=== PATIENT | female | born 1975 | race Caucasian/White ===

== ENCOUNTER → 2023-11-02 | Outpatient (CLI) | payer OTHER ==
--- NOTE | 2023-11-02 12:17 | US ---
EXAMINATION TYPE: US kidneys/renal and bladder DATE OF EXAM: 11/02/2023 COMPARISON: NONE CLINICAL INDICATION: Female, 47 years old with history of N20.0 CALCULUS OF KIDNEY R10.30 LOWER ABD P AIN; History of kidney stones. Back pain, worse on the left EXAM MEASUREMENTS: Right Kidney: 10.5 x 4.7 x 4.9 cm Left Kidney: 10.0 x 5.6 x 4.5 cm Right Kidney: stones visualized, largest = 0.8cm. minimally dilated collecting system Left Kidney: anechoic area lower pole = 1.8 x 1.2 x 1.1cm. stones visualized, largest = 1.0cm Bladder: wnl Bilateral Jets seen: yes No masses are identified. The urinary bladder is anechoic. Bilateral ureteral jets are seen. IMPRESSION: Nephrolithiasis with mild right-sided hydronephrosis.
--- NOTE | 2023-11-02 17:49 | CA ---
Transthoracic Echo Report Name: Dorothea Douglas Age: 47 Gender: F : 1975 Exam Date: 11/02/2023 12:01 Exam Location: [facility] Ht (in): 64 Wt (lb): 139 Ordering Physician: Poonam Jenkins MD Attending/Referring Phys: Poonam Jenkins MD Property Staff Accountant Wendi Corrales, [facility] Procedure CPT: Indications: R00.2 palpitations Cardiac Hx: Technical Quality: Good Contrast 1: Total Dose (mL): Contrast 2: Total Dose (mL): MEASUREMENTS (Male / Female) Normal Values 2D ECHO LV Diastolic Diameter PLAX 5.2 cm 4.2 - 5.9 / 3.9 - 5.3 cm LV Systolic Diameter PLAX 3.9 cm IVS Diastolic Thickness 0.7 cm 0.6 - 1.0 / 0.6 - 0.9 cm LVPW Diastolic Thickness 0.7 cm 0.6 - 1.0 / 0.6 - 0.9 cm LV Relative Wall Thickness 0.3 RV Internal Dim ED PLAX 2.8 cm LV Diastolic Volume MOD 4C 73.8 cm??? LV Systolic Volume MOD 4C 32.9 cm??? LV Ejection Fraction MOD 4C 55.3 % LV Cardiac Index MOD 4C 1757.5 cm???/min???m??? LV Diastolic Length 4C 7.6 cm LV Systolic Length 4C 6.1 cm LV Diastolic Volume MOD 2C 75.6 cm??? LV Systolic Volume MOD 2C 27.4 cm??? LV Ejection Fraction MOD 2C 63.8 % LV Cardiac Index MOD 2C 2078.5 cm???/min???m??? LV Diastolic Length 2C 7.1 cm LV Systolic Length 2C 5.7 cm LA Volume 45.7 cm??? 18 - 58 / 22 - 52 cm??? LA Volume Index 27.0 cm???/m??? 16 - 28 cm???/m??? M-MODE Aortic Root Diameter MM 3.1 cm DOPPLER AV Peak Velocity 138.7 cm/s AV Peak Gradient 7.7 mmHg Mitral E Point Velocity 101.7 cm/s Mitral A Point Velocity 88.8 cm/s Mitral E to A Ratio 1.1 MV Deceleration Time 178.8 ms MV E' Velocity 9.7 cm/s Mitral E to MV E' Ratio 10.5 TR Peak Velocity 245.4 cm/s TR Peak Gradient 24.1 mmHg Right Ventricular Systolic Press 29.1 mmHg FINDINGS Left Ventricle Left ventricular ejection fraction is estimated at 60-65 %. Left ventricular cavity size normal. Left ventricular wall thickness normal. Normal left ventricular wall motion. Right Ventricle Normal right ventricular size. Right ventricular systolic pressure within normal limits. Right Atrium Normal right atrial size. Left Atrium Normal left atrial size. Mitral Valve Structurally normal mitral valve. Aortic Valve Trileaflet aortic valve. No aortic valve stenosis or regurgitation. Tricuspid Valve Structurally normal tricuspid valve. Mild tricuspid regurgitation. Pulmonic Valve Structurally normal pulmonic valve. No pulmonic regurgitation. Pericardium No pericardial effusion. Aorta Normal size aortic root and proximal ascending aorta. CONCLUSIONS Normal LV function Previewed by: Dr. Brant James MD (Electronically Signed) Final Date: 02 November 2023 17:48
== END | disposition home or self-care (01) ==
LOC: RADUSWWP 11:26
PROVIDERS: ATTEND Family Medicine
DX: N13.2 Hydronephrosis with renal and ureteral calculous obstruction (principal); R00.2 Palpitations; R01.1 Cardiac murmur, unspecified; M54.9 Dorsalgia, unspecified
CPT/HCPCS: 76770; 93306

== ENCOUNTER 2024-11-15 19:19 | Inpatient (IN) | payer OTHER ==
--- NOTE | 2024-11-15 19:46 | ED ---
Abdominal Pain HPI - General Chief Complaint: Abdominal Pain Stated Complaint: L flank pain Time Seen by Provider: 11/15/24 19:44 Source: patient, RN notes reviewed Mode of arrival: EMS Limitations: no limitations - History of Present Illness Initial Comments: 48-year-old female presenting for left flank pain x 1 week. Reports a dull and intermittent left flank pain. Pain does not radiate. States over the past week she has been having progressively worsening generalized bodyaches, headache, and fevers. Denies nasal congestion, sore throat, cough. Denies dysuria, urinary urgency, urinary frequency, hematuria, nausea, or vomiting. States she has a history of bilateral kidney stones. No other significant health conditions. - Related Data Home Medications Medication Instructions Recorded Confirmed No Known Home Medications 08/11/15 08/11/15 Allergies Allergy/AdvReac Type Severity Reaction Status Date / Time erythromycin lactobionate Allergy Itching Verified 08/11/15 16:02 [From Erythrocin] azithromycin AdvReac Swelling Verified 11/15/24 19:28 [From Zithromax Z-Dimitry] Review of Systems ROS Statement: Those systems with pertinent positive or pertinent negative responses have been documented in the HPI. ROS Other: All systems not noted in ROS Statement are negative. Past Medical History Past Medical History: Asthma Additional Past Medical History / Comment(s): mastocytosis History of Any Multi-Drug Resistant Organisms: None Reported Past Surgical History: Tonsillectomy Past Psychological History: No Psychological Hx Reported Smoking Status: Never smoker Past Alcohol Use History: Occasional Past Drug Use History: None Reported General Exam Limitations: no limitations General appearance: alert, in no apparent distress Head exam: Present: atraumatic, normocephalic, normal inspection Respiratory exam: Present: normal lung sounds bilaterally. Absent: respiratory distress, wheezes, rales, rhonchi, stridor Cardiovascular Exam: Present: regular rate, normal rhythm, normal heart sounds. Absent: systolic murmur, diastolic murmur, rubs, gallop, clicks GI/Abdominal exam: Present: soft, normal bowel sounds. Absent: distended, tenderness, guarding, rebound, rigid Back exam: Present: normal inspection, full ROM. Absent: tenderness, CVA tenderness (R), CVA tenderness (L), paraspinal tenderness, vertebral tenderness Neurological exam: Present: alert, oriented X3 Psychiatric exam: Present: normal affect, normal mood Skin exam: Present: warm, dry, intact, normal color. Absent: rash Course Vital Signs 11/15/24 11/15/24 11/15/24 19:22 21:17 22:57 Temperature 101.6 F H 99.2 F 97.8 F Pulse Rate 110 H 91 Respiratory 18 17 Rate Blood Pressure 142/72 114/89 O2 Sat by Pulse 97 98 Oximetry Medical Decision Making - Medical Decision Making Was pt. sent in by a medical professional or institution (, PA, BIAS BINDING CUTTER, urgent care, hospital, or prison...) When possible be specific @ -No Did you speak to anyone other than the patient for history (EMS, parent, family, police, friend...)? What history was obtained from this source @ -No Did you review nursing and triage notes (agree or disagree)? Why? @ -I reviewed and agree with nursing and triage notes Were old charts reviewed (outside hosp., previous admission, EMS record, old EKG, old radiological studies, urgent care reports/EKG's, prison records)? Report findings @ -No old charts were reviewed Differential Diagnosis (chest pain, altered mental status, abdominal pain women, abdominal pain men, vaginal bleeding, weakness, fever, dyspnea, syncope, headache, dizziness, GI bleed, back pain, seizure, CVA, palpatations, mental health, musculoskeletal)? @ -Differential Abdominal Pain Women: Appendicitis, Cholecystitis, diverticulosis, ischemic bowel, pancreatitis, hepatitis, UTI, gastroenteritis, AAA, incarcerated hernia, bowel obstruction, constipation, inflammatory bowel, hepatitis, peptic ulcer disease, splenic infarction, perforated viscus, vulvitis, ovarian torsion, PID, kidney stone, pl acenta abruption, this is not meant to be an all-inclusive list EKG interpreted by me (3pts min.). @ -None X-rays interpreted by me (1pt min.). @ -None done CT interpreted by me (1pt min.). @ -CT abdomen pelvis reveals mild left hydronephrosis secondary to obstructing 6 mm calculus at the ureteropelvic junction U/S interpreted by me (1pt. min.). @ -None done What testing was considered but not performed or refused? (CT, X-rays, U/S, labs)? Why? @ -None What meds were considered but not given or refused? Why? @ -None Did you discuss the management of the patient with other professionals (dimple romo i.e. , PA, BIAS BINDING CUTTER, lab, RT, psych nurse, older adult social work specialist, chronograph operator, teacher, education officer, manager case management)? Give summary @ -I spoke with Dr. Sanchez who requests to be consulted with admission to medicine, I spoke with Dr. Finley who accepts admission Was smoking cessation discussed for >3mins.? @ -No Was critical care preformed (if so, how long)? @ -No Were there social determinants of health that impacted care today? How? (Homelessness, low income, unemployed, alcoholism, drug addiction, t ransportation, low edu. Level, literacy, decrease access to med. care, long term, rehab)? @ -No Was there de-escalation of care discussed even if they declined (Discuss DNR or withdrawal of care, Hospice)? DNR status @ -No What co-morbidities impacted this encounter? (DM, HTN, Smoking, COPD, CAD, Cancer, CVA, ARF, Chemo, Hep., AIDS, mental health diagnosis, sleep apnea, morbid obesity)? @ -None Was patient admitted / discharged? Hospital course, mention meds given and route, prescriptions, significant lab abnormalities, going to OR and other pertinent info. @ -Admitted. 48-year-old female presenting for left flank pain x 1 week. Patient is febrile at 101.6 F, tachycardic at 110 bpm, blood pressure 142/72. No CVA tenderness bilaterally. Patient is provided with IV fluids, Toradol and Tylenol. Lab work remarkable for normal white blood cell count of 5.6, normal lactic of 1.4. Patient is negative for COVID-19, influenza, and RSV. Urinalysis remarkable for large amount of red blood cells and white blood cells. Urine culture sent. CT abdomen pelvis reveals mild left hydronephrosis se condary to obstructing 6 mm calculus at the ureteropelvic junction. Upon reevaluation, temperature is 99.2. Discussed diagnosis of left nephrolithiasis and urinary tract infection with patient. Patient will be admitted to medicine with urology consult. Blood cultures were taken and patient was given IV Rocephin. Patient is made n.p.o. Case was discussed with my ED attending Dr. Hickey. Undiagnosed new problem with uncertain prognosis? @ -No Drug Therapy requiring intensive monitoring for toxicity (Heparin, Nitro, Insulin, Cardizem)? @ -No Were any procedures done? @ -No Diagnosis/symptom? @ -Left nephrolithiasis, urinary tract infection Acute, or Chronic, or Acute on Chronic? @ -Acute Uncomplicated (without systemic symptoms) or Complicated (systemic symptoms)? @ -Complicated Side effects of treatment? @ -No Exacerbation, Progression, or Severe Exacerbation? @ -No Poses a threat to life or bodily function? How? (Chest pain, [place], [place], pneumonia, PE, COPD, DKA, ARF, appy, cholecystitis, CVA, Diverticulitis, Homicidal, Suicidal, threat to staff... and all critical care pts) @ -Yes - Lab Data Result diagrams: 11/15/24 19:50 11/15/24 19:50 Lab Results 11/15/24 11/15/24 11/15/24 Range/Units 19:50 19:50 19:50 WBC 5.6 (3.8-10.6) k/uL RBC 3.70 L (3.80-5.40) m/uL Hgb 10.5 L (11.4-16.0) gm/dL Hct 32.3 L (34.0-46.0) % MCV 87.4 (80.0-100.0) fL MCH 28.3 (25.0-35.0) pg MCHC 32.4 (31.0-37.0) g/dL RDW 13.7 (11.5-15.5) % Plt Count 357 (150-450) k/uL MPV 8.2 Neutrophils % 81 % Lymphocytes % 15 % Monocytes % 1 % Eosinophils % 1 % Basophils % 0 % Neutrophils # 4.6 (1.3-7.7) k/uL Lymphocytes # 0.9 L (1.0-4.8) k/uL Monocytes # 0.0 (0-1.0) k/uL Eosinophils # 0.1 (0-0.7) k/uL Basophils # 0.0 (0-0.2) k/uL Hypochromasia Slight Sodium (137-145) mmol/L Potassium (3.5-5.1) mmol/L Chloride (98-107) mmol/L Carbon Dioxide (22-30) mmol/L Anion Gap mmol/L BUN (7-17) mg/dL Creatinine (0.52-1.04) mg/dL Est GFR (CKD-EPI)AfAm (>60 ml/min/1.73 sqM) Est GFR (CKD-EPI)NonAf (>60 ml/min/1.73 sqM) Glucose (74-99) mg/dL Plasma Lactic Acid Balbir (0.7-2.0) mmol/L Calcium (8.4-10.2) mg/dL Total Bilirubin (0.2-1.3) mg/dL AST (14-36) U/L ALT (4-34) U/L Alkaline Phosphatase (38-126) U/L Total Protein (6.3-8.2) g/dL Albumin (3.5-5.0) g/dL Urine Color Light Yellow Urine Appearance Cloudy H (Clear) Urine pH 5.5 (5.0-8.0) Ur Specific [place] 1.013 (1.001-1.035) Urine Protein 1+ H (Negative) Urine Glucose (UA) Negative (Negative) Urine Ketones Trace H (Negative) Urine Blood Large H (Negative) Urine Nitrite Negative (Negative) Urine Bilirubin Negative (Negative) Urine Urobilinogen <2.0 (<2.0) mg/dL Ur Leukocyte Esterase Large H (Negative) Urine RBC >182 H (0-5) /hpf Urine WBC 119 H (0-5) /hpf Ur Squamous Epith Cells 19 H (0-4) /hpf Urine Bacteria Moderate H (None) /hpf Hyaline Casts 8 H (0-2) /lpf Urine Mucus Occasional H (None) /hpf Urine HCG, Qual Not Detected (Not Detectd) Influenza Type A (PCR) (Not Detectd) Influenza Type B (PCR) (Not Detectd) RSV (PCR) (Not Detectd) SARS-CoV-2 (PCR) (Not Detectd) 11/15/24 11/15/24 11/15/24 Range/Units 19:50 19:50 19:50 WBC (3.8-10.6) k/uL RBC (3.80-5.40) m/uL Hgb (11.4-16.0) gm/dL Hct (34.0-46.0) % MCV (80.0-100.0) fL MCH (25.0-35.0) pg MCHC (31.0-37.0) g/dL RDW (11.5-15.5) % Plt Count (150-450) k/uL MPV Neutrophils % % Lymphocytes % % Monocytes % % Eosinophils % % Basophils % % Neutrophils # (1.3-7.7) k/uL Lymphocytes # (1.0-4.8) k/uL Monocytes # (0-1.0) k/uL Eosinophils # (0-0.7) k/uL Basophils # (0-0.2) k/uL Hypochromasia Sodium 134 L (137-145) mmol/L Potassium 4.1 (3.5-5.1) mmol/L Chloride 105 (98-107) mmol/L Carbon Dioxide 21 L (22-30) mmol/L Anion Gap 8 mmol/L BUN 14 (7-17) mg/dL Creatinine 0.52 (0.52-1.04) mg/dL Est GFR (CKD-EPI)AfAm >90 (>60 ml/min/1.73 sqM) Est GFR (CKD-EPI)NonAf >90 (>60 ml/min/1.73 sqM) Glucose 118 H (74-99) mg/dL Plasma Lactic Acid Balbir 1.4 (0.7-2.0) mmol/L Calcium 8.2 L (8.4-10.2) mg/dL Total Bilirubin 0.8 (0.2-1.3) mg/dL AST 23 (14-36) U/L ALT 21 (4-34) U/L Alkaline Phosphatase 100 (38-126) U/L Total Protein 6.1 L (6.3-8.2) g/dL Albumin 3.4 L (3.5-5.0) g/dL Urine Color Urine Appearance (Clear) Urine pH (5.0-8.0) Ur Specific [place] (1.001-1.035) Urine Protein (Negative) Urine Glucose (UA) (Negative) Urine Ketones (Negative) Urine Blood (Negative) Urine Nitrite (Negative) Urine Bilirubin (Negative) Urine Urobilinogen (<2.0) mg/dL Ur Leukocyte Esterase (Negative) Urine RBC (0-5) /hpf Urine WBC (0-5) /hpf Ur Squamous Epith Cells (0-4) /hpf Urine Bacteria (None) /hpf Hyaline Casts (0-2) /lpf Urine Mucus (None) /hpf Urine HCG, Qual (Not Detectd) Influenza Type A (PCR) Not Detected (Not Detectd) Influenza Type B (PCR) Not Detected (Not Detectd) RSV (PCR) Not Detected (Not Detectd) SARS-CoV-2 (PCR) Not Detected (Not Detectd) Disposition Clinical Impression: Left nephrolithiasis, Urinary tract infection Disposition: ADMITTED IP TO THIS HOSP Referrals: Poonam Jenkins MD [Primary Care Provider] - 1-2 days Time of Disposition: 23:28
--- NOTE | 2024-11-15 20:17 | CT ---
EXAMINATION TYPE: CT abdomen pelvis wo con DATE OF EXAM: 11/15/2024 8:03 PM COMPARISON: None. CLINICAL INDICATION: Female, 48 years old with history of left flank pain; Left flank pain. TECHNIQUE: Axial CT abdomen pelvis wo con;Sagittal and coronal reformats were created on a separate workstation. Contrast used: mL of (none if empty) Oral contrast used: without Oral Contrast (none if empty) CT DLP: 399.3 mGycm, Automated exposure control for dose reduction was used. FINDINGS: LOWER CHEST: Unremarkable ABDOMEN LIVER: Unremarkable GALLBLADDER AND BILE DUCTS: Unremarkable. PANCREAS: Unremarkable. SPLEEN: Unremarkable. ADRENAL GLANDS: Unremarkable. KIDNEYS AND URETERS: Bilateral nonobstructing renal calculi. The largest in the right measuring up to 16 mm. Mild left hydronephrosis secondary to obstructing 6 mm calculus at the ureteropelvic junction . Additional nonobstructing calculi measuring up to 8 mm. PELVIS BLADDER: No evidence for wall thickening or mass given limitations of exam. REPRODUCTIVE: Lobular contour to the uterus ABDOMEN & PELVIS STOMACH AND BOWEL: No evidence of bowel obstruction. There is large redundant sigmoid colon extending up into the upper abdomen PERITONEUM/RETROPERITONEUM: No evidence of pneumoperitoneum or free fluid. VASCULATURE: No evidence of aortic aneurysm. MUSCULOSKELETAL: No acute osseous abnormalities LYMPH NODES: No gross evidence for lymphadenopathy. SOFT TISSUE/ABDOMINAL WALL: Small fat-containing umbilical hernia. IMPRESSION: 1. Mild left hydronephrosis secondary to obstructing 6 mm calculus at the ureteropelvic junction. Ad ditional bilateral nonobstructing calculi. 2. Lobular contour to the uterus consistent and compatible fibroid change. 3. Small fat-containing umbilical hernia. [facility], , 11/15/2024 8:15 PM
[2024-11-15] MEDS: ACETAMINOPHEN TAB 500 MG TAB PO STA (20:19)
[2024-11-15] MEDS: KETOROLAC 15 MG/ML 1 ML VIAL IVP STA ×2 (20:20→22:54)
[2024-11-15 20:26] LABS: Basophils % (A) 0 %; Eosinophils # (A) 0.1 k/uL (0-0.7); Eosinophils % (A) 1 %; HCT 32.3 % (34.0-46.0); HGB 10.5 gm/dL (11.4-16.0); Hypochromasia Slight; Lymphocytes # (A) 0.9 k/uL (1.0-4.8); Lymphocytes % (A) 15 %; MCH 28.3 pg (25.0-35.0); MCHC 32.4 g/dL (31.0-37.0); MCV 87.4 fL (80.0-100.0); Mean Platelet Volume 8.2; Monocytes % (A) 1 %; Neutrophils # (A) 4.6 k/uL (1.3-7.7); Neutrophils % (A) 81 %; Platelet Count 357 k/uL (150-450); RDW 13.7 % (11.5-15.5); WBC 5.6 k/uL (3.8-10.6)
[2024-11-15 20:33] LABS: Appearance,Urine Cloudy (Clear); Bacteria,Urine Moderate /hpf; Bilirubin,Urine Negative (Negative); Blood,Urine Large (Negative); Color,Urine Light Yellow; Glucose,Urine (UA) Negative (Negative); Hyaline Casts,Urine 8 /lpf (0-2); Ketones,Urine Trace (Negative); Leukocyte Esterase,Urine Large (Negative); Mucus,Urine Occasional /hpf; Nitrite,Urine Negative (Negative); PH, Urine 5.5 (5.0-8.0); Protein,Urine 1+ (Negative); RBC,Urine >182 /hpf (0-5); Specific Gravity,Urine 1.013 (1.001-1.035); Squamous Epithelial Cell,Urine 19 /hpf (0-4); Urobilinogen,Urine <2.0 mg/dL (<2.0); WBC,Urine 119 /hpf (0-5)
[2024-11-15 20:34] LABS: ALT 21 U/L (4-34); AST 23 U/L (14-36); African American GFR (CKD) >90 (>60 ml/min/1.73 sqM); Albumin 3.4 g/dL (3.5-5.0); Alkaline Phosphatase 100 U/L (38-126); Anion Gap 8 mmol/L; Blood Urea Nitrogen 14 mg/dL (7-17); Calcium 8.2 mg/dL (8.4-10.2); Carbon Dioxide 21 mmol/L (22-30); Chloride 105 mmol/L (98-107); Glucose 118 mg/dL (74-99); Non-African American GFR(CKD) >90 (>60 ml/min/1.73 sqM); Potassium 4.1 mmol/L (3.5-5.1); Sodium 134 mmol/L (137-145); Total Bilirubin 0.8 mg/dL (0.2-1.3); Total Protein 6.1 g/dL (6.3-8.2)
[2024-11-15 21:04] LABS: Influenza A Not Detected (Not Detectd); Influenza B Not Detected (Not Detectd); RSV Not Detected (Not Detectd)
[2024-11-15] MEDS: SODIUM CHLORIDE 0.9% 1,000 ML IV STA (22:56)
[2024-11-15] MEDS ORDERED: NALOXONE 0.4 MG/ML 1 ML VIAL IV PRN (23:14)
[2024-11-15] MEDS ORDERED: KETOROLAC 15 MG/ML 1 ML VIAL IVP PRN (23:14)
[2024-11-15] MEDS: SODIUM CHLORIDE 0.9% 1,000 ML IV SCH (23:57)
[2024-11-16] MEDS: ONDANSETRON 4 MG/2 ML VIAL IVP PRN (02:19)
[2024-11-16] MEDS: HYDROmorphone 1 MG/ML 1 ML SYRINGE IVP PRN (02:21)
--- NOTE | 2024-11-16 08:42 | P.HPIM ---
History of Present Illness H&P Date: 11/16/24 Dorothea Douglas is a 48-year-old female who presented to [facility] emergency room with a chief complaint of abdominal pain, fever and muscle aches over the past few weeks. She was evaluated in the emergency room vital examination on presentation revealed temp 101.6, heart rate 110, respiratory rate 18, blood pressure 142/72 with a pulse ox of 97% on room air Laboratory data reveals. White blood cell 5.6, hemoglobin 10.5 creatinine 0.52 bun 14. UA positive for urinary tract infection influenza RSV and COVID-19 negative Testing in the emergency room revealed CT of abdomen and pelvis completed showing mild left hydronephrosis secondary to obstructing 6 mm calculus at the ureteropelvic junction. Lobular contour to the uterus consistent compatible fibroid change small fat-containing umbilical hernia Patient was admitted to medical floor for further evaluation and treatment. Urology services consulted patient started on IV antibiotics urine and blood cultures ordered Past medical history is significant for previous kidney stones and has followed up with urology in the past never required any cystoscopy or intervention. Additional history includes asthma. On review of systems patient is alert and oriented x 3. Patient is complaining of some muscle aches and headache. Some left flank pain noted upon exam. Patient denies chest pain or shortness of breath. Patient denies nausea vomiting or diarrhea. Patient denies any urinary burning or frequency Review of Systems Please refer to HPI otherwise unremarkable Past Medical History Past Medical History: Asthma Additional Past Medical History / Comment(s): mastocytosis History of Any Multi-Drug Resistant Organisms: None Reported Past Surgical History: Tonsillectomy Past Psychological History: No Psychological Hx Reported Smoking Status: Never smoker Past Alcohol Use History: Occasional Past Drug Use History: None Reported Medications and Allergies Home Medications Medication Instructions Recorded Confirmed Type No Known Home Medications 08/11/15 08/11/15 History Allergies Allergy/AdvReac Type Severity Reaction Status Date / Time erythromycin lactobionate Allergy Itching Verified 08/11/15 16:02 [From Erythrocin] azithromycin AdvReac Swelling Verified 11/15/24 19:28 [From Zithromax Z-Dimitry] Physical Exam Vitals: Vital Signs Temp Pulse Resp BP Pulse Ox 11/16/24 05:30 82 17 135/66 97 11/16/24 00:00 92 17 129/73 99 11/15/24 22:57 97.8 F 91 17 114/89 98 11/15/24 21:17 99.2 F 11/15/24 19:22 101.6 F H 110 H 18 142/72 97 Intake and Output 11/15/24 11/16/24 11/16/24 22:59 06:59 14:59 Other: Weight 62.596 kg In general patient is alert and oriented x 3 in no distress HEENT head normocephalic and atraumatic Neck is supple no JVD no goiter no lymphadenopathy no carotid bruit Chest examination is clear to auscultation no crackles no wheezing Cardiac exam reveals regular heart sounds S1 and S2 no gallops no murmurs Abdomen is soft nontender no organomegaly with normal bowel sounds Extremity exam reveals no edema no cyanosis or clubbing Neurological examination reveals no gross focal deficits Results CBC & Chem 7: 11/15/24 19:50 11/15/24 19:50 Labs: Abnormal Lab Results - Last 24 Hours (Table) 11/15/24 11/15/24 11/15/24 Range/Units 19:50 19:50 19:50 RBC 3.70 L (3.80-5.40) m/uL Hgb 10.5 L (11.4-16.0) gm/dL Hct 32.3 L (34.0-46.0) % Lymphocytes # 0.9 L (1.0-4.8) k/uL Sodium 134 L (137-145) mmol/L Carbon Dioxide 21 L (22-30) mmol/L Glucose 118 H (74-99) mg/dL Calcium 8.2 L (8.4-10.2) mg/dL Total Protein 6.1 L (6.3-8.2) g/dL Albumin 3.4 L (3.5-5.0) g/dL Urine Appearance Cloudy H (Clear) Urine Protein 1+ H (Negative) Urine Ketones Trace H (Negative) Urine Blood Large H (Negative) Ur Leukocyte Esterase Large H (Negative) Urine RBC >182 H (0-5) /hpf Urine WBC 119 H (0-5) /hpf Ur Squamous Epith Cells 19 H (0-4) /hpf Urine Bacteria Moderate H (None) /hpf Hyaline Casts 8 H (0-2) /lpf Urine Mucus Occasional H (None) /hpf Assessment and Plan Plan: Left urolithiasis Left hydronephrosis Febrile illness with evidence of urinary tract infection History of asthma no exacerbation at this time At this time patient is admitted to medical floor She was started on IV ceftriaxone in the emergency room Urology consultation was requested Blood and urine cultures ordered DVT prophylaxis SCDs (due to possible plans of surgical intervention) GI prophylax Protonix Time with Patient: Greater than 30 (Greater than 60% of the total time spent in counseling and coordination of care)
[2024-11-16] MEDS: Acetaminophen-Codeine 300-30mg TAB PO PRN (10:05)
--- NOTE | 2024-11-16 11:42 | P.GSCN ---
History of Present Illness Consult date: 11/16/24 Reason for Consult: UTI, Left UPJ calculus Requesting physician: Raymond Finley History of present illness: The patient is a 48-year-old female who presented with a one week history of non-radiating left flank pain, which she describes as dull and intermittent left flank pain. She has also experienced fatigue and confusion. Beginning on November 13, she developed associated bodyaches, headache, and fever. Her primary c omplaint at this time is neck pain. She has a known history of bilateral kidney stones. Review of Systems - Constitutional Reports chills, Reports fever, Reports weakness - Gastrointestinal Reports nausea, Reports vomiting - Genitourinary Genitourinary: Reports flank pain, Reports kidney stones, Denies dysuria, Denies hematuria Past Medical History Past Medical History: Asthma Additional Past Medical History / Comment(s): mastocytosis History of Any Multi-Drug Resistant Organisms: None Reported Past Surgical History: Tonsillectomy Past Psychological History: No Psychological Hx Reported Smoking Status: Never smoker Past Alcohol Use History: Occasional Past Drug Use History: None Reported Medications and Allergies Home Medications Medication Instructions Recorded Confirmed Type No Known Home Medications 08/11/15 11/16/24 History Allergies Allergy/AdvReac Type Severity Reaction Status Date / Time erythromycin lactobionate Allergy Itching Verified 11/16/24 09:22 [From Erythrocin] azithromycin AdvReac Swelling Verified 11/16/24 09:22 [From Zithromax Z-Dimitry] Surgical - Exam Vital Signs Temp Pulse Resp BP Pulse Ox 101.6 F H 110 H 18 142/72 97 11/15/24 19:22 11/15/24 19:22 11/15/24 19:22 11/15/24 19:22 11/15/24 19:22 - General well developed, well nourished, moderate distress - Respiratory normal respiratory effort - Abdomen Abdomen: soft, non tender, no guarding, no rigid, no rebound - Psychiatric oriented to time, oriented to person, oriented to place, speech is normal, memory intact Results - Labs 11/15/24 19:50 11/15/24 19:50 Abnormal Lab Results - Last 24 Hours (Table) 11/15/24 11/15/24 11/15/24 Range/Units 19:50 19:50 19:50 RBC 3.70 L (3.80-5.40) m/uL Hgb 10.5 L (11.4-16.0) gm/dL Hct 32.3 L (34.0-46.0) % Lymphocytes # 0.9 L (1.0-4.8) k/uL Sodium 134 L (137-145) mmol/L Carbon Dioxide 21 L (22-30) mmol/L Glucose 118 H (74-99) mg/dL Calcium 8.2 L (8.4-10.2) mg/dL Total Protein 6.1 L (6.3-8.2) g/dL Albumin 3.4 L (3.5-5.0) g/dL Urine Appearance Cloudy H (Clear) Urine Protein 1+ H (Negative) Urine Ketones Trace H (Negative) Urine Blood Large H (Negative) Ur Leukocyte Esterase Large H (Negative) Urine RBC >182 H (0-5) /hpf Urine WBC 119 H (0-5) /hpf Ur Squamous Epith Cells 19 H (0-4) /hpf Urine Bacteria Moderate H (None) /hpf Hyaline Casts 8 H (0-2) /lpf Urine Mucus Occasional H (None) /hpf Diabetes panel 11/15/24 Range/Units 19:50 Sodium 134 L (137-145) mmol/L Potassium 4.1 (3.5-5.1) mmol/L Chloride 105 (98-107) mmol/L Carbon Dioxide 21 L (22-30) mmol/L BUN 14 (7-17) mg/dL Creatinine 0.52 (0.52-1.04) mg/dL Glucose 118 H (74-99) mg/dL Calcium 8.2 L (8.4-10.2) mg/dL AST 23 (14-36) U/L ALT 21 (4-34) U/L Alkaline Phosphatase 100 (38-126) U/L Total Protein 6.1 L (6.3-8.2) g/dL Albumin 3.4 L (3.5-5.0) g/dL Calcium panel 11/15/24 Range/Units 19:50 Calcium 8.2 L (8.4-10.2) mg/dL Albumin 3.4 L (3.5-5.0) g/dL Pituitary panel 11/15/24 Range/Units 19:50 Sodium 134 L (137-145) mmol/L Potassium 4.1 (3.5-5.1) mmol/L Chloride 105 (98-107) mmol/L Carbon Dioxide 21 L (22-30) mmol/L BUN 14 (7-17) mg/dL Creatinine 0.52 (0.52-1.04) mg/dL Glucose 118 H (74-99) mg/dL Calcium 8.2 L (8.4-10.2) mg/dL Adrenal panel 11/15/24 Range/Units 19:50 Sodium 134 L (137-145) mmol/L Potassium 4.1 (3.5-5.1) mmol/L Chloride 105 (98-107) mmol/L Carbon Dioxide 21 L (22-30) mmol/L BUN 14 (7-17) mg/dL Creatinine 0.52 (0.52-1.04) mg/dL Glucose 118 H (74-99) mg/dL Calcium 8.2 L (8.4-10.2) mg/dL Total Bilirubin 0.8 (0.2-1.3) mg/dL AST 23 (14-36) U/L ALT 21 (4-34) U/L Alkaline Phosphatase 100 (38-126) U/L Total Protein 6.1 L (6.3-8.2) g/dL Albumin 3.4 L (3.5-5.0) g/dL - Imaging CT scan - abdomen: report reviewed, image reviewed Assessment and Plan (1) Urinary tract infection Current Visit: Yes Status: Acute Code(s): N39.0 - URINARY TRACT INFECTION, SITE NOT SPECIFIED SNOMED Code(s): 05846093 (2) Hydronephrosis with renal and ureteral calculous obstruction Current Visit: Yes Status: Acute Code(s): N13.2 - HYDRONEPHROSIS WITH RENAL AND URETERAL CALCULOUS OBSTRUCTION SNOMED Code(s): 569481857 Plan: Urine culture was sent, and the patient is receiving Rocephin. She will undergo cystoscopy with left ureteral stent insertion. The rationale for this has been reviewed in detail with the patient and her . They were made aware of potential risks, which include anesthesia, ureteral injury, and inability to successfully place a stent. Arrangements will be made for her to undergo ureteroscopic removal of her left ureteral calculus and bilateral renal calculi in 2 to 4 weeks, once her infection has cleared. The right upper pole calculus measures 1.6 cm in size and may require a secondary procedure. Given her history of recurrent urolithiasis, she will require a formal metabolic evaluation. Time with Patient: Greater than 30
--- NOTE | 2024-11-16 12:28 | CT ---
EXAMINATION TYPE: CT brain lin shay con DATE OF EXAM: 11/16/2024 COMPARISON: NONE CLINICAL INDICATION: Female, 48 years old with history of back of head/neck pain, back of head/neck p ain, TECHNIQUE: CT scan of the head and cervical spine are performed without contrast. CT DLP: 1236 mGycm. Automated Exposure Control for Dose Reduction was Utilized. FINDINGS: There is no acute intracranial hemorrhage or midline shift identified. Mild ventricular a nd sulcal prominence. Some CSF prominence posterior aspect posterior fossa. Consider megacisterna ma gna. Freedman-white matter differentiation fairly well-preserved. Some soft tissue density thought to ref lect cerumen in the extra auditory canals left greater than right is present. Some dependent opacity right sphenoid sinus and left maxillary sinus. The globes are intact bilaterally. Cervical spine is visualized in its entirety from C1 through upper thoracic levels and demonstrates s atisfactory alignment without evidence of acute fracture or dislocation. Prevertebral soft tissue ap pears within normal limits. The C1-C2 articulation is within normal limits on the coronal images. V ertebral body heights are maintained. There is significant disc space narrowing with some ossific fus ion at the C5-C6 level. Spinal canal is preserved. Thyroid gland is normal in size. Lung apices are c lear without pneumothorax IMPRESSION: 1. There is no acute fracture or dislocation evident in the cervical spine. 2. No acute intracranial hemorrhage or midline shift is seen. Right sphenoid and left maxillary sinus disease noted. [facility], , 11/16/2024 12:26 PM
[2024-11-16] MEDS ORDERED: MIDAZOLAM 2 MG/2 ML VIAL ONE (12:36)
[2024-11-16] MEDS ORDERED: ONDANSETRON 4 MG/2 ML VIAL ONE (12:36)
[2024-11-16] MEDS ORDERED: LIDOCAINE 1% INJ 10MG/ML (20 ML MDV) ONE (12:36)
[2024-11-16] MEDS ORDERED: KETOROLAC 15 MG/ML 1 ML VIAL ONE (12:36)
[2024-11-16] MEDS ORDERED: PROPOFOL 10 MG/ML 20 ML VIAL IV ONE (12:36)
[2024-11-16] MEDS: SODIUM CHLORIDE 0.9% 1,000 ML IV ONE (12:36)
--- NOTE | 2024-11-16 13:01 | P.OP ---
Date of Procedure: 11/16/24 Preoperative Diagnosis: Left hydronephrosis secondary to UPJ calculus Postoperative Diagnosis: Same Procedure(s) Performed: Cystoscopy, left ureteral stent insertion Anesthesia: MAC Surgeon: Andrea Kasper Estimated Blood Loss (ml): 0 IV fluids (ml): 50 Pathology: none sent Condition: stable Disposition: PACU Indications for Procedure: The patient is a 48-year-old female who presented with a one week history of non-radiating left flank pain, which she describes as dull and intermittent left flank pain. She has also experienced fatigue and confusion. Beginning on November 13, she developed associated bodyaches, headache, and fever. Her primary compla int at this time is neck pain. She has a known history of bilateral kidney stones. CT scan shows mild left hydronephrosis due to a 6 mm left UPJ calculus, and urinalysis is suggestive of infection. She has received Rocephin and now comes for left ureteral stent placement. Operative Findings: Successful left ureteral stent insertion. Description of Procedure: The patient was taken to the operating room and placed in the dorsolithotomy position, with legs supported in Jayy stirrups. The external genitalia was prepped and draped sterilely. The 30 lens was used to introduce the 22-Greek Stortz cystoscopic sheath through the urethra and into the bladder under direct vision. The bladder was examined in its entirety. Both ureteral orifices were of normal anatomic location and configuration. No tumors or foreign bodies were seen. A 0.035 inch Glidewire was passed through the cystoscope. The left ureteral orifice was cannulated, and the Glidewire was slowly advanced up to the renal pelvis. A 24 cm, 6-Greek double-J ureteral stent was placed over the wire. Proper stent positioning was verified fluoroscopically and endoscopic ally. After the stent was placed, a "hydronephrotic millard" was noted as blood- tinged urine drained through the stent. With the beak of the cystoscope immediately adjacent to the end of the stent, urine was collected and sent for culture and sensitivity. The bladder was emptied and the cystoscope removed. The patient tolerated the procedure well and was taken to the recovery room in stable condition.
--- NOTE | 2024-11-16 14:26 | FL ---
EXAMINATION TYPE: FL guidance operating room DATE OF EXAM: 11/16/2024 CLINICAL INDICATION: Female, 48 years old with history of STENT PLACEMENT, ureter stone. TECHNIQUE: Fluoroscopy. COMPARISON: CT abdomen and pelvis one day earlier. FINDINGS: Fluoroscopic guidance was provided during left ureter stent insertion procedure performed by Dr. Kasper. A total of 8.8 seconds of fluoroscopic time was utilized during the procedure and 2 s pot intraoperative images are acquired. Images acquired show portion of left ureter stent. TOTAL DAP = 0.653 Gycm2. IMPRESSION: As Above. [facility], , 11/16/2024 2:23 PM
[2024-11-16] MEDS: LORazepam 0.5 MG TAB PO PRN (17:40)
[2024-11-17] MEDS: ACETAMINOPHEN TAB 500 MG TAB PO PRN (05:38)
[2024-11-17] MEDS: PANTOPRAZOLE 40 MG TABLET PO SCH (06:38)
[2024-11-17 08:46] LABS: Basophils # (A) 0.03 X 10*3/uL (0.00-0.10); Basophils % (A) 0.2 %; Eosinophils # (A) 0.05 X 10*3/uL (0.04-0.35); Eosinophils % (A) 0.3 %; HCT 30.1 % (37.2-46.3); HGB 9.4 g/dL (12.0-15.0); Lymphocytes # (A) 1.41 X 10*3/uL (0.90-5.00); Lymphocytes % (A) 9.7 %; MCHC 31.2 g/dL (32.0-37.0); MCV 89.6 FL (80.0-97.0); Monocytes # (A) 0.83 X 10*3/uL (0.20-1.00); Monocytes % (A) 5.7 %; NRBC Per 100 WBC 0 X 10*3/uL (0.00-0.01); Neutrophils # (A) 12.18 X 10*3/uL (1.80-7.70); Neutrophils % (A) 83.4 %; Platelet Count 306 X 10*3/uL (140-440); RBC 3.36 X 10*6/uL (4.10-5.20); RDW 15.1 % (11.5-14.5)
[2024-11-17 09:32] LABS: ALT 37 U/L (8-44); AST 30 U/L (13-35); Albumin 3.3 g/dL (3.8-4.9); Albumin/Globulin Ratio 1.57 Ratio (1.60-3.17); Alkaline Phosphatase 90 U/L (41-126); BUN/Creat Ratio 22.86 Ratio (12.00-20.00); Carbon Dioxide 22.7 mmol/L (21.6-31.8); Chloride 106 mmol/L (96-109); Globulin 2.1 g/dL (1.6-3.3); Glucose 146 mg/dL (70-110); Sodium 138 mmol/L (135-145); Total Bilirubin 0.2 mg/dL (0.3-1.2); Total Protein 5.4 g/dL (6.2-8.2)
--- NOTE | 2024-11-17 12:29 | P.PN ---
Subjective Progress Note Date: 11/17/24 No acute overnight event, denies any flank pain. Her main complaint is a headache. Urine culture is growing gram-negative bacilli Objective - Vital Signs Vital signs: Vital Signs Temp 99.2 F 11/17/24 06:47 Pulse 89 11/17/24 06:47 Resp 18 11/17/24 06:47 BP 148/83 11/17/24 06:47 Pulse Ox 98 11/17/24 06:47 FiO2 Intake & Output 11/16/24 11/17/24 11/17/24 18:59 06:59 18:59 Intake Total 340 Output Total 0 Balance 340 Weight 62.596 kg Intake: IV 100 Oral 240 Output: Estimated Blood Loss 0 Other: Voiding Method Toilet # Voids 2 3 - Constitutional General appearance: Present: no acute distress - Gastrointestinal General gastrointestinal: Present: soft. Absent: distended, tenderness - Psychiatric Psychiatric: Present: A&O x's 3 - Labs CBC & Chem 7: 11/17/24 04:59 11/17/24 04:59 Labs: Abnormal Lab Results - Last 24 Hours (Table) 11/17/24 11/17/24 Range/Units 04:59 04:59 WBC 14.60 H (4.50-10.00) X 10*3/uL RBC 3.36 L (4.10-5.20) X 10*6/uL Hgb 9.4 L (12.0-15.0) g/dL Hct 30.1 L (37.2-46.3) % MCHC 31.2 L (32.0-37.0) g/dL RDW 15.1 H (11.5-14.5) % Immature Gran # 0.10 H (0.00-0.04) X 10*3/uL Neutrophils # 12.18 H (1.80-7.70) X 10*3/uL BUN/Creatinine Ratio 22.86 H (12.00-20.00) Ratio Glucose 146 H (70-110) mg/dL Calcium 8.0 L (8.7-10.3) mg/dL Total Bilirubin 0.2 L (0.3-1.2) mg/dL Total Protein 5.4 L (6.2-8.2) g/dL Albumin 3.3 L (3.8-4.9) g/dL Albumin/Globulin Ratio 1.57 L (1.60-3.17) Ratio Microbiology - Last 24 Hours (Table) 11/15/24 19:50 Urine Culture - Preliminary Urine,Voided Gram Neg Bacilli Assessment and Plan Assessment: 48-year-old female with history of a 6 mm left-sided septic stone. Status post stent insertion on November 16. Urine cultures growing gram-negative bacilli. From urology standpoint, recommend keeping until the cultures finalized. Once patient is discharged she will be set up for an outpatient ureteroscopy with holmium laser to address her stone with Dr. Kasper
--- NOTE | 2024-11-17 15:17 | CDI ---
Documentation Clarification Form Date: 11/17/2024 02:50:15 PM From: Anabel Gee RN CCDS Phone: [phone] Admit Date: 11/15/2024 11:54:00 PM Patient Name: Dorothea Douglas Visit Number: [id number] Discharge Date: ATTENTION: The Clinical Documentation Specialists (CDI) and [facility] Coding Staff appreciate your assistance in clarifying documentation. Please respond to the clarification below the line at the bottom and electronically sign. The CDI & [facility] Coding staff will review the response and follow-up if needed. Please note: Queries are made part of the Legal Health Record. If you have any questions, please contact the author of this message via ITS. Doctor: Raymond Finley The patient has urinary tract infection, 11/16 HP. Based on this information and the findings below, is there an additional diagnosis that is clinically appropriate for this patient? History/Risk Factors: 48 year old female presents to the ED with abdominal pain, fever, headaches and muscle aches over the past few weeks. Medical History: Asthma 11/15, ED note. Clinical Indicators: WBC 11/15 - 5.6; 11/17 - 14.60 Lactic acid: 11/15 1.4 Blood cultures: 11/17 No growth after 24 hours Urine cultures: 11/15 Gram neg Bacilli Vitals signs: 11/15 B/P 142/72; HR 110; Temp 101.5F oral; RR 18; SpO2 97% ra Treatment: 11/15 Tylenol po 1,000mg x 1; 11/17 Tylenol po 1,000mg po x 1; 11/16 11/17 Tylenol/Codeine #3 po x 4 doses; 11/15 Toradol 15mg IVP x 2; 11/15 0.9NS 75cc/hr Antibiotics: 11/15 Ceftriaxone ivpb x 1; 11/16 Ceftrixone ivpb Q24H IV Bolus: 11/15 0.9NS 1L IV Fluid Bolus x 1 Is there an additional diagnosis that is clinically appropriate for this patient? [x ] Sepsis, present on admission [ ] No additional diagnosis/not clinically significant [ ] Other, please specify [ ] Unable to determine SIRS Criteria: 2 or more of the following may indicate SIRS Temperature < 96.8F (36C) or > 101.0F (38.3C) Heart Rate > 90 bpm Respiratory Rate > 20 breaths/min or PaCO2 < 32 mmHg White Blood Cell Count > 12,000 or < 4,000 cells/mm3 or > 10% bands (Template Last Reviewed: August 2022) MTDD
[2024-11-17] MEDS: BACLOFEN 10 MG TAB PO PRN (16:28)
--- NOTE | 2024-11-17 17:52 | P.PN ---
Subjective Progress Note Date: 11/17/24 Dorothea Douglas is a 48-year-old female who presented to [facility] emergency room with a chief complaint of abdominal pain, fever and muscle aches over the past few weeks. She was evaluated in the emergency room vital examination on presentation revealed temp 101.6, heart rate 110, respiratory rate 18, blood pressure 142/72 with a pulse ox of 97% on room air Laboratory data reveals. White blood cell 5.6, hemoglobin 10.5 creatinine 0.52 bun 14. UA positive for urinary tract infection influenza RSV and COVID-19 negative Testing in the emergency room revealed CT of abdomen and pelvis completed showing mild left hydronephrosis secondary to obstructing 6 mm calculus at the ureteropelvic junction. Lobular contour to the uterus consistent compatible fibroid change small fat-containing umbilical hernia Patient was admitted to medical floor for further evaluation and treatment. Uro logy services consulted patient started on IV antibiotics urine and blood cultures ordered Past medical history is significant for previous kidney stones and has followed up with urology in the past never required any cystoscopy or intervention. Additional history includes asthma. On review of systems patient is alert and oriented x 3. Patient is complaining of some muscle aches and headache. Some left flank pain noted upon exam. Patient denies chest pain or shortness of breath. Patient denies nausea vomiting or diarrhea. Patient denies any urinary burning or frequency On 11/17/2024 patient was seen and examined on the medical floor she is mostly complaining of right-sided headache and neck pain otherwise she denies any complaints there is no fever or chills no dizziness no chest pain no shortness of breath no cough no nausea or vomiting no abdominal pain no diarrhea and no urinary symptoms urine culture is positive for gram-negative bacilli patient remains on IV ceftriaxone awaiting culture sensitivity , will follow in a.m. Objective - Vital Signs Vital signs: Vital Signs Temp 98.0 F 11/17/24 15:00 Pulse 82 11/17/24 15:00 Resp 18 11/17/24 15:00 BP 145/88 11/17/24 15:00 Pulse Ox 98 11/17/24 15:00 FiO2 Intake & Output 11/16/24 11/17/24 11/17/24 18:59 06:59 18:59 Intake Total 340 Output Total 0 Balance 340 Weight 62.596 kg Intake: IV 100 Oral 240 Output: Estimated Blood Loss 0 Other: Voiding Method Toilet Toilet # Voids 2 3 1 - Exam In general patient is alert and oriented x 3 in no distress HEENT head normocephalic and atraumatic Neck is supple no JVD no goiter no lymphadenopathy no carotid bruit Chest examination is clear to auscultation no crackles no wheezing Cardiac exam reveals regular heart sounds S1 and S2 no gallops no murmurs Abdomen is soft nontender no organomegaly with normal bowel sounds Extremity exam reveals no edema no cyanosis or clubbing Neurological examination reveals no gross focal deficits - Labs CBC & Chem 7: 11/17/24 04:59 11/17/24 04:59 Labs: Abnormal Lab Results - Last 24 Hours (Table) 11/17/24 11/17/24 Range/Units 04:59 04:59 WBC 14.60 H (4.50-10.00) X 10*3/uL RBC 3.36 L (4.10-5.20) X 10*6/uL Hgb 9.4 L (12.0-15.0) g/dL Hct 30.1 L (37.2-46.3) % MCHC 31.2 L (32.0-37.0) g/dL RDW 15.1 H (11.5-14.5) % Immature Gran # 0.10 H (0.00-0.04) X 10*3/uL Neutrophils # 12.18 H (1.80-7.70) X 10*3/uL BUN/Creatinine Ratio 22.86 H (12.00-20.00) Ratio Glucose 146 H (70-110) mg/dL Calcium 8.0 L (8.7-10.3) mg/dL Total Bilirubin 0.2 L (0.3-1.2) mg/dL Total Protein 5.4 L (6.2-8.2) g/dL Albumin 3.3 L (3.8-4.9) g/dL Albumin/Globulin Ratio 1.57 L (1.60-3.17) Ratio Microbiology - Last 24 Hours (Table) 11/15/24 23:54 Blood Culture - Preliminary Blood 11/15/24 19:50 Urine Culture - Preliminary Urine,Voided Gram Neg Bacilli Assessment and Plan Plan: Left urolithiasis Left hydronephrosis Febrile illness with evidence of urinary tract infection History of asthma no exacerbation at this time At this time patient is admitted to medical floor She was started on IV ceftriaxone in the emergency room Urology consultation was requested Blood and urine cultures ordered DVT prophylaxis SCDs (due to possible plans of surgical intervention) GI prophylax Protonix
[2024-11-17] MEDS: SUMAtriptan succinate 50 MG TAB PO STA (18:24)
[2024-11-17] MEDS: ACETAMINOPHEN IV (For NPO) 1,000 MG in EMPTY BAG 1 BAG IVPB STA (21:32)
[2024-11-18 10:28] LABS: Basophils % (A) 0 %; Eosinophils % (A) 0 %; HCT 29.4 % (34.0-46.0); HGB 9.4 gm/dL (11.4-16.0); Hypochromasia Slight; Lymphocytes # (A) 1.3 k/uL (1.0-4.8); Lymphocytes % (A) 7 %; MCH 28.3 pg (25.0-35.0); MCHC 32.1 g/dL (31.0-37.0); Mean Platelet Volume 8.1; Monocytes # (A) 0.4 k/uL (0-1.0); Monocytes % (A) 2 %; Neutrophils # (A) 16.3 k/uL (1.3-7.7); Neutrophils % (A) 90 %; Platelet Count 294 k/uL (150-450); RBC 3.34 m/uL (3.80-5.40); RDW 14.1 % (11.5-15.5); WBC 18.1 k/uL (3.8-10.6)
[2024-11-18 10:37] LABS: ALT 41 U/L (4-34); AST 30 U/L (14-36); African American GFR (CKD) >90 (>60 ml/min/1.73 sqM); Albumin 2.6 g/dL (3.5-5.0); Albumin/Globulin Ratio 1.1; Alkaline Phosphatase 96 U/L (38-126); Anion Gap 3 mmol/L; Blood Urea Nitrogen 16 mg/dL (7-17); Calcium 8.1 mg/dL (8.4-10.2); Carbon Dioxide 25 mmol/L (22-30); Chloride 101 mmol/L (98-107); Globulin 2.4 g/dL; Glucose 155 mg/dL (74-99); Non-African American GFR(CKD) >90 (>60 ml/min/1.73 sqM); Potassium 3.8 mmol/L (3.5-5.1); Sodium 129 mmol/L (137-145); Total Bilirubin 0.4 mg/dL (0.2-1.3)
--- NOTE | 2024-11-18 11:03 | P.PN ---
Subjective Progress Note Date: 11/18/24 Dorothea Douglas is a 48-year-old female who presented to [facility] emergency room with a chief complaint of abdominal pain, fever and muscle aches over the past few weeks. She was evaluated in the emergency room vital examination on presentation revealed temp 101.6, heart rate 110, respiratory rate 18, blood pressure 142/72 with a pulse ox of 97% on room air Laboratory data reveals. White blood cell 5.6, hemoglobin 10.5 creatinine 0.52 bun 14. UA positive for urinary tract infection influenza RSV and COVID-19 negative Testing in the emergency room revealed CT of abdomen and pelvis completed showing mild left hydronephrosis secondary to obstructing 6 mm calculus at the ureteropelvic junction. Lobular contour to the uterus consistent compatible fibroid change small fat-containing umbilical hernia Patient was admitted to medical floor for further evaluation and treatment. Uro logy services consulted patient started on IV antibiotics urine and blood cultures ordered Past medical history is significant for previous kidney stones and has followed up with urology in the past never required any cystoscopy or intervention. Additional history includes asthma. On review of systems patient is alert and oriented x 3. Patient is complaining of some muscle aches and headache. Some left flank pain noted upon exam. Patient denies chest pain or shortness of breath. Patient denies nausea vomiting or diarrhea. Patient denies any urinary burning or frequency On 11/17/2024 patient was seen and examined on the medical floor she is mostly complaining of right-sided headache and neck pain otherwise she denies any complaints there is no fever or chills no dizziness no chest pain no shortness of breath no cough no nausea or vomiting no abdominal pain no diarrhea and no urinary symptoms urine culture is positive for gram-negative bacilli patient remains on IV ceftriaxone awaiting culture sensitivity , will follow in a.m. On 11/18/2024 patient is alert and oriented x 3. Patient having temp of 103.1 last night infectious disease services have been consulted. Urine culture growing Klebsiella pneumonia remains on IV Rocephin. Patient denies chest pain or shortness of breath. Patient is only complaint is headache. Patient denies nausea vomiting or diarrhea. Patient denies any urinary burning frequency Objective - Vital Signs Vital signs: Vital Signs Temp 98.6 F 11/18/24 07:00 Pulse 91 11/18/24 07:00 Resp 16 11/18/24 07:00 BP 130/79 11/18/24 07:00 Pulse Ox 95 11/18/24 07:00 FiO2 Intake & Output 11/17/24 11/18/24 11/18/24 18:59 06:59 18:59 Other: Voiding Method Toilet Toilet # Voids 1 2 # Bowel Movements 0 - Exam In general patient is alert and oriented x 3 in no distress HEENT head normocephalic and atraumatic Neck is supple no JVD no goiter no lymphadenopathy no carotid bruit Chest examination is clear to auscultation no crackles no wheezing Cardiac exam reveals regular heart sounds S1 and S2 no gallops no murmurs Abdomen is soft nontender no organomegaly with normal bowel sounds Extremity exam reveals no edema no cyanosis or clubbing Neurological examination reveals no gross focal deficits - Labs CBC & Chem 7: 11/18/24 09:58 11/18/24 09:58 Labs: Abnormal Lab Results - Last 24 Hours (Table) 11/18/24 11/18/24 Range/Units 09:58 09:58 WBC 18.1 H (3.8-10.6) k/uL RBC 3.34 L (3.80-5.40) m/uL Hgb 9.4 L (11.4-16.0) gm/dL Hct 29.4 L (34.0-46.0) % Neutrophils # 16.3 H (1.3-7.7) k/uL Sodium 129 L (137-145) mmol/L Glucose 155 H (74-99) mg/dL Calcium 8.1 L (8.4-10.2) mg/dL ALT 41 H (4-34) U/L Total Protein 5.0 L (6.3-8.2) g/dL Albumin 2.6 L (3.5-5.0) g/dL Microbiology - Last 24 Hours (Table) 11/15/24 19:50 Urine Culture - Final Urine,Voided Klebsiella pneumoniae 11/16/24 12:57 Urine Culture - Final Urine,Ureter 11/15/24 23:54 Blood Culture - Preliminary Blood Assessment and Plan Plan: Left urolithiasis Left hydronephrosis Febrile illness with evidence of urinary tract infection History of asthma no exacerbation at this time At this time patient is admitted to medical floor She was started on IV ceftriaxone in the emergency room Urology consultation was requested Blood and urine cultures ordered DVT prophylaxis lovenox GI prophylax Protonix
--- NOTE | 2024-11-18 11:41 | P.PN ---
Subjective Progress Note Date: 11/18/24 Patient had a fever of 103.1, urine culture is growing Klebsiella. Infectious disease has been consulted. She denies any flank pain at this time or gross hematuria or dysuria. Continues to complain of headache Objective - Vital Signs Vital signs: Vital Signs Temp 98.6 F 11/18/24 07:00 Pulse 91 11/18/24 07:00 Resp 16 11/18/24 07:00 BP 130/79 11/18/24 07:00 Pulse Ox 95 11/18/24 07:00 FiO2 Intake & Output 11/17/24 11/18/24 11/18/24 18:59 06:59 18:59 Other: Voiding Method Toilet Toilet # Voids 1 2 # Bowel Movements 0 - Constitutional General appearance: Present: no acute distress - Gastrointestinal General gastrointestinal: Present: soft. Absent: distended, tenderness - Psychiatric Psychiatric: Present: A&O x's 3 - Labs CBC & Chem 7: 11/18/24 09:58 11/18/24 09:58 Labs: Abnormal Lab Results - Last 24 Hours (Table) 11/18/24 11/18/24 Range/Units 09:58 09:58 WBC 18.1 H (3.8-10.6) k/uL RBC 3.34 L (3.80-5.40) m/uL Hgb 9.4 L (11.4-16.0) gm/dL Hct 29.4 L (34.0-46.0) % Neutrophils # 16.3 H (1.3-7.7) k/uL Sodium 129 L (137-145) mmol/L Glucose 155 H (74-99) mg/dL Calcium 8.1 L (8.4-10.2) mg/dL ALT 41 H (4-34) U/L Total Protein 5.0 L (6.3-8.2) g/dL Albumin 2.6 L (3.5-5.0) g/dL Microbiology - Last 24 Hours (Table) 11/15/24 19:50 Urine Culture - Final Urine,Voided Klebsiella pneumoniae 11/16/24 12:57 Urine Culture - Final Urine,Ureter 11/15/24 23:54 Blood Culture - Preliminary Blood Assessment and Plan Assessment: 48-year-old female with history of a 6 mm left-sided septic stone. Status post stent insertion on November 16. Urine cultures growing Klebsiella. She did have a fever of 103.1 yesterday. Infectious disease has been consulted. Recommend keeping in the hospital until she is afebrile for at least 24 hours, antibiotic recommendation per infectious disease She is tentatively scheduled for bilateral ureteroscopy with holmium laser with Dr. Kasper on November 27.
[2024-11-18] MEDS: BUTALB/APAP/CAFF 50-325-40MG TAB PO PRN (16:46)
[2024-11-18] MEDS: PROCHLORPERAZINE INJ 10 MG/2 ML VIAL IVP PRN (16:47)
--- NOTE | 2024-11-18 23:12 | P.CONS ---
History of Present Illness - Reason for Consult Consult date: 11/18/24 Infection Requesting physician: Raymond Finley - Chief Complaint Flank pain and fever x days - History of Present Illness Patient is a 48-year-old female with a past medical history significant for asthma kidney stone presenting to the hospital 3 days ago for evaluation of left flank pain x 1 week generalized bodyaches headache and fever patient has been diagnosed with acute complicated pyelonephritis with left-sided hydronephrosis secondary to UPJ calculus in the patient is status post cystoscopy and left ureteral stent insertion patient on presentation to the hospital did have a temperature of 101.6 F with the patient had persistent fever and temperature of 103 F last evening that has prompted this consultation patient still complaining of having headache some nausea but no vomiting no chest pain shortness of the cough some flank pain mostly dull aching without any deviation denies any diarrhea or constipation patient did have normal white count elevation however white count is up to 18.1 with a left shift creatinine 0.57 electrolytes are normal liver enzymes are normal urine was positive urine culture with Klebsiella blood culture has been negative Review of Systems Positive point and negatives has been mentioned in the HPI, complete review of systems was performed and all other systems are negative Past Medical History Past Medical History: Asthma Additional Past Medical History / Comment(s): mastocytosis History of Any Multi-Drug Resistant Organisms: None Reported Past Surgical History: Tonsillectomy Past Psychological History: No Psychological Hx Reported Smoking Status: Never smoker Past Alcohol Use History: Occasional Past Drug Use History: None Reported Medications and Allergies Home Medications Medication Instructions Recorded Confirmed Type No Known Home Medications 08/11/15 11/16/24 History Allergies Allergy/AdvReac Type Severity Reaction Status Date / Time erythromycin lactobionate Allergy Itching Verified 11/16/24 09:22 [From Erythrocin] azithromycin AdvReac Swelling Verified 11/16/24 09:22 [From Zithromax Z-Dimitry] Physical Exam Vitals: Vital Signs Temp Pulse Resp BP Pulse Ox 11/18/24 07:00 98.6 F 91 16 130/79 95 11/18/24 00:37 99.6 F 117 H 19 103/63 95 11/17/24 21:45 103.1 F H 11/17/24 18:45 98.5 F 77 17 159/91 99 11/17/24 15:00 98.0 F 82 18 145/88 98 Intake and Output 11/17/24 11/18/24 11/18/24 22:59 06:59 14:59 Other: Voiding Method Toilet Toilet # Voids 3 2 # Bowel Movements 0 GENERAL DESCRIPTION: Middle-age female lying in bed, no distress. No tachypnea or accessory muscle of respiration use. HEENT: Shows Pallor , no scleral icterus. Oral mucous membrane is dry. NECK: Trachea central, no thyromegaly. LUNGS: Unlabored breathing. Clear to auscultation anteriorly. No wheeze or crackle. HEART: S1, S2, regular rate and rhythm. No loud murmur ABDOMEN: Soft, no tenderness , guarding or rigidity, no organomegaly EXTREMITIES: No edema of feet. SKIN: No rash, no masses palpable. NEUROLOGICAL: The patient is awake, alert, oriented x3, mood and affect normal. Results CBC & Chem 7: 11/18/24 09:58 11/18/24 09:58 Labs: Abnormal Lab Results - Last 24 Hours (Table) 11/18/24 11/18/24 Range/Units 09:58 09:58 WBC 18.1 H (3.8-10.6) k/uL RBC 3.34 L (3.80-5.40) m/uL Hgb 9.4 L (11.4-16.0) gm/dL Hct 29.4 L (34.0-46.0) % Neutrophils # 16.3 H (1.3-7.7) k/uL Sodium 129 L (137-145) mmol/L Glucose 155 H (74-99) mg/dL Calcium 8.1 L (8.4-10.2) mg/dL ALT 41 H (4-34) U/L Total Protein 5.0 L (6.3-8.2) g/dL Albumin 2.6 L (3.5-5.0) g/dL Microbiology - Last 24 Hours (Table) 11/15/24 19:50 Urine Culture - Final Urine,Voided Klebsiella pneumoniae 11/16/24 12:57 Urine Culture - Final Urine,Ureter 11/15/24 23:54 Blood Culture - Preliminary Blood Assessment and Plan (1) Sepsis Current Visit: Yes Status: Acute Code(s): A41.9 - SEPSIS, UNSPECIFIED ORGANISM SNOMED Code(s): 96907600 (2) Urinary tract infection Current Visit: Yes Status: Acute Code(s): N39.0 - URINARY TRACT INFECTION, SITE NOT SPECIFIED SNOMED Code(s): 20712789 Plan: 1patient with sepsis in this patient who did have fever tachycardia elevated white count source is complicated UTI in this patient with a left-sided hydronephrosis status post left ureteral stent placement with urine culture growing Klebsiella to be the likely pathogen 2-I will adjust the dose of Rocephin to 2 g daily and see clinical response Multiple question concern answered We will follow on clinical condition and cultures to further adjust medication if needed Thank you for this consultation we will follow the patient along with you Dictation was produced using [employer] dictation software. please excuse any grammatical, word or spelling errors. Time with Patient: Greater than 30
[2024-11-19 08:38] LABS: ALT 35 U/L (8-44); AST 20 U/L (13-35); Albumin/Globulin Ratio 1.43 Ratio (1.60-3.17); Alkaline Phosphatase 99 U/L (41-126); BUN/Creat Ratio 18.67 Ratio (12.00-20.00); Blood Urea Nitrogen 11.2 mg/dL (9.0-27.0); Calcium 8.2 mg/dL (8.7-10.3); Carbon Dioxide 24.6 mmol/L (21.6-31.8); Chloride 103 mmol/L (96-109); Globulin 2.1 g/dL (1.6-3.3); Glucose 129 mg/dL (70-110); Potassium 3.7 mmol/L (3.5-5.5); Sodium 137 mmol/L (135-145); Total Bilirubin 0.3 mg/dL (0.3-1.2); Total Protein 5.1 g/dL (6.2-8.2)
[2024-11-19 09:17] LABS: Basophils # (A) 0.05 X 10*3/uL (0.00-0.10); Basophils % (A) 0.2 %; Eosinophils # (A) 0.22 X 10*3/uL (0.04-0.35); HCT 27.9 % (37.2-46.3); HGB 8.7 g/dL (12.0-15.0); Lymphocytes % (A) 9.3 %; MCHC 31.2 g/dL (32.0-37.0); MCV 89.7 FL (80.0-97.0); Mean Platelet Volume 11.3 FL (9.5-12.2); Monocytes % (A) 4.2 %; NRBC Per 100 WBC 0 X 10*3/uL (0.00-0.01); Neutrophils # (A) 18.09 X 10*3/uL (1.80-7.70); Platelet Count 361 X 10*3/uL (140-440); RBC 3.11 X 10*6/uL (4.10-5.20); RDW 15.3 % (11.5-14.5); WBC 21.54 X 10*3/uL (4.50-10.00)
--- NOTE | 2024-11-19 09:30 | P.PN ---
Subjective Progress Note Date: 11/19/24 Dorothea Douglas is a 48-year-old female who presented to [facility] emergency room with a chief complaint of abdominal pain, fever and muscle aches over the past few weeks. She was evaluated in the emergency room vital examination on presentation revealed temp 101.6, heart rate 110, respiratory rate 18, blood pressure 142/72 with a pulse ox of 97% on room air Laboratory data reveals. White blood cell 5.6, hemoglobin 10.5 creatinine 0.52 bun 14. UA positive for urinary tract infection influenza RSV and COVID-19 negative Testing in the emergency room revealed CT of abdomen and pelvis completed showing mild left hydronephrosis secondary to obstructing 6 mm calculus at the ureteropelvic junction. Lobular contour to the uterus consistent compatible fibroid change small fat-containing umbilical hernia Patient was admitted to medical floor for further evaluation and treatment. Uro logy services consulted patient started on IV antibiotics urine and blood cultures ordered Past medical history is significant for previous kidney stones and has followed up with urology in the past never required any cystoscopy or intervention. Additional history includes asthma. On review of systems patient is alert and oriented x 3. Patient is complaining of some muscle aches and headache. Some left flank pain noted upon exam. Patient denies chest pain or shortness of breath. Patient denies nausea vomiting or diarrhea. Patient denies any urinary burning or frequency On 11/17/2024 patient was seen and examined on the medical floor she is mostly complaining of right-sided headache and neck pain otherwise she denies any complaints there is no fever or chills no dizziness no chest pain no shortness of breath no cough no nausea or vomiting no abdominal pain no diarrhea and no urinary symptoms urine culture is positive for gram-negative bacilli patient remains on IV ceftriaxone awaiting culture sensitivity , will follow in a.m. On 11/18/2024 patient is alert and oriented x 3. Patient having temp of 103.1 last night infectious disease services have been consulted. Urine culture growing Klebsiella pneumonia remains on IV Rocephin. Patient denies chest pain or shortness of breath. Patient is only complaint is headache. Patient denies nausea vomiting or diarrhea. Patient denies any urinary burning frequency On 11/19/2024 patient is alert and oriented x 3 patient still reporting a headache but some improvement with the first. Patient did have low-grade temp of 99. Rocephin increased per infectious disease. Patient denies chest pain or shortness of breath. Patient denies nausea vomiting or diarrhea. Patient denies any urinary burning or frequency. Patient's only complaint is headache. Current vital signs temp 98.1, heart rate 82, respiratory rate 16, blood pressure 136/83 with a pulse ox of 98% on room air Objective - Vital Signs Vital signs: Vital Signs Temp 99.0 F 11/19/24 02:00 Pulse 89 11/19/24 02:00 Resp 17 11/19/24 02:00 BP 136/83 11/19/24 02:00 Pulse Ox 93 L 11/19/24 02:00 FiO2 Intake & Output 11/18/24 11/19/24 11/19/24 18:59 06:59 18:59 Intake Total 1080 Balance 1080 Intake: Oral 1080 Other: Voiding Method Toilet Toilet # Voids 1 2 - Exam In general patient is alert and oriented x 3 in no distress HEENT head normocephalic and atraumatic Neck is supple no JVD no goiter no lymphadenopathy no carotid bruit Chest examination is clear to auscultation no crackles no wheezing Cardiac exam reveals regular heart sounds S1 and S2 no gallops no murmurs Abdomen is soft nontender no organomegaly with normal bowel sounds Extremity exam reveals no edema no cyanosis or clubbing Neurological examination reveals no gross focal deficits - Labs CBC & Chem 7: 11/19/24 04:09 11/19/24 04:09 Labs: Abnormal Lab Results - Last 24 Hours (Table) 11/18/24 11/18/24 11/19/24 Range/Units 09:58 09:58 04:09 WBC 18.1 H 21.54 H (3.8-10.6) k/uL RBC 3.34 L 3.11 L (3.80-5.40) m/uL Hgb 9.4 L 8.7 L (11.4-16.0) gm/dL Hct 29.4 L 27.9 L (34.0-46.0) % MCHC 31.2 L (32.0-37.0) g/dL RDW 15.3 H (11.5-14.5) % Immature Gran # 0.28 H (0.00-0.04) X 10*3/uL Neutrophils # 16.3 H 18.09 H (1.3-7.7) k/uL Sodium 129 L (137-145) mmol/L Glucose 155 H (74-99) mg/dL Calcium 8.1 L (8.4-10.2) mg/dL ALT 41 H (4-34) U/L Total Protein 5.0 L (6.3-8.2) g/dL Albumin 2.6 L (3.5-5.0) g/dL Albumin/Globulin Ratio (1.60-3.17) Ratio 11/19/24 Range/Units 04:09 WBC (3.8-10.6) k/uL RBC (3.80-5.40) m/uL Hgb (11.4-16.0) gm/dL Hct (34.0-46.0) % MCHC (32.0-37.0) g/dL RDW (11.5-14.5) % Immature Gran # (0.00-0.04) X 10*3/uL Neutrophils # (1.3-7.7) k/uL Sodium (137-145) mmol/L Glucose 129 H (74-99) mg/dL Calcium 8.2 L (8.4-10.2) mg/dL ALT (4-34) U/L Total Protein 5.1 L (6.3-8.2) g/dL Albumin 3.0 L (3.5-5.0) g/dL Albumin/Globulin Ratio 1.43 L (1.60-3.17) Ratio Microbiology - Last 24 Hours (Table) 11/17/24 22:22 Blood Culture - Preliminary Blood 11/16/24 12:57 Anaerobic Culture - Preliminary Urine,Ureter 11/15/24 23:54 Blood Culture - Preliminary Blood Assessment and Plan Assessment: Left urolithiasis Left hydronephrosis Febrile illness with evidence of urinary tract infection History of asthma no exacerbation at this time At this time patient is admitted to medical floor She was started on IV ceftriaxone in the emergency room Urology consultation was requested Blood and urine cultures ordered DVT prophylaxis lovenox GI prophylax Protonix
[2024-11-19] MEDS: ENOXAPARIN 40 MG/0.4 ML SYRINGE SQ SCH (09:40)
[2024-11-19 13:35] LABS: Appearance,Urine Clear (Clear); Bacteria,Urine Rare /hpf; Bilirubin,Urine Negative (Negative); Blood,Urine Moderate (Negative); Color,Urine Colorless; Glucose,Urine (UA) Negative (Negative); Ketones,Urine Negative (Negative); Leukocyte Esterase,Urine Large (Negative); Mucus,Urine Rare /hpf; Nitrite,Urine Negative (Negative); PH, Urine 6.5 (5.0-8.0); Protein,Urine Trace (Negative); RBC,Urine 14 /hpf (0-5); Specific Gravity,Urine 1.007 (1.001-1.035); Squamous Epithelial Cell,Urine 4 /hpf (0-4); Urobilinogen,Urine <2.0 mg/dL (<2.0); WBC,Urine 20 /hpf (0-5)
--- NOTE | 2024-11-19 14:37 | P.CNNES ---
History of Present Illness Consult date: 11/19/24 Requesting physician: Nikole Reveles Reason for Consult: headache History of Present Illness: This is a 48-year-old woman with history of migraine presents emergency department because of generalized weakness, body aches. According to the patient last Sunday she felt she was as if she was hit by a truck and then she noticed that she had generalized weakness and bodyaches. Then she felt she had a headache with neck pain she took Aleve and she got better and she the later she felt like her neck was stiff on Sunday and she slept. Patient came to our facility on 11/15/2024 as a result she had workup was found to have urinary tract infection, hydronephrosis with renal and ureteral calculus obstruction as a result she had a stent on the left. As stated earlier she was found to have acute urinary tract infection/sepsis. Urine culture was positive for Klebsiella pneumonia. But she feels her headache is got worse and she feels its mostly over the occipital neck region and she stated over the weekend it was very bad and now it is 3/10. She has photophobia and phonophobia. She had difficulty moving her neck but after she was received pain medication now she feels she is drastically better and she feels the headache is 3 out of 10. Denies any visual disturbance. Denies any focal weakness. Denies any nausea or vomiting. Her white blood cell is trending up currently is 21,000. She was having fevers on presentation and that has resolved. Last fever was 103.1 on 11/17/2024. CT of the head is reported as no acute intracranial hemorrhage or midline shift is seen. Right sphenoid and left maxillary sinus disease noted. I personally reviewed the CT and agree with the report. CT cervical spine: There is no acute fracture or dislocation evident in the cervical spine. Review of Systems As per HPI. Past Medical History Past Medical History: Asthma Additional Past Medical History / Comment(s): mastocytosis History of Any Multi-Drug Resistant Organisms: None Reported Past Surgical History: Tonsillectomy Past Psychological History: No Psychological Hx Reported Smoking Status: Never smoker Past Alcohol Use History: Occasional Past Drug Use History: None Reported Medications and Allergies Home Medications Medication Instructions Recorded Confirmed Type No Known Home Medications 08/11/15 11/16/24 History Allergies Allergy/AdvReac Type Severity Reaction Status Date / Time erythromycin lactobionate Allergy Itching Verified 11/16/24 09:22 [From Erythrocin] azithromycin AdvReac Swelling Verified 11/16/24 09:22 [From Zithromax Z-Dimitry] Physical Examination - Vital Signs Vital Signs: Vital Signs Temp Pulse Resp BP Pulse Ox 11/19/24 07:13 98.6 F 95 16 155/92 91 L 11/19/24 02:00 99.0 F 89 17 136/83 93 L 11/18/24 20:34 98.1 F 82 16 149/90 98 11/18/24 14:30 98.4 F 85 16 147/82 97 Intake and Output 11/18/24 11/19/24 11/19/24 22:59 06:59 14:59 Intake Total 1080 240 Balance 1080 240 Intake: Oral 1080 240 Other: Voiding Method Toilet Toilet # Voids 1 2 GENERAL: The patient is sitting in a recliner chair and is not in acute distress. HENT: Supple neck. NEUROLOGICAL: Higher mental function: The patient is awake, alert, oriented to self, place and time. Patient is following commands. No aphasia and no neglect. Cranial nerves: The pupils are round, equal and reactive to light and accommodation. Visual major are full to confrontation throughout. Extraocular movement is intact no nystagmus is noted. Facial sensation is normal to touch throughout. The facial strength is normal throughout. Hearing is normal bilaterally to hand rub. Tongue is midline and moved [id number] without any difficulty. No dysarthria is noted. Shoulder shrug is normal bilaterally. Motor: The strength is 5 over 5 throughout. Normal tone and bulk. Cerebellum: Normal finger to nose bilaterally. Sensation: Sensation is normal to touch throughout. Reflexes (right/left): 2+ throughout. Plantars are downgoing bilaterally. Results - Laboratory Findings CBC and BMP: 11/19/24 04:09 11/19/24 04:09 Abnormal Lab Findings: Abnormal Labs 11/15/24 11/15/24 11/15/24 19:50 19:50 19:50 WBC RBC 3.70 L Hgb 10.5 L Hct 32.3 L MCHC RDW Immature Gran # Neutrophils # Lymphocytes # 0.9 L Sodium 134 L Carbon Dioxide 21 L BUN/Creatinine Ratio Glucose 118 H Calcium 8.2 L Total Bilirubin ALT Total Protein 6.1 L Albumin 3.4 L Albumin/Globulin Ratio Urine Appearance Cloudy H Urine Protein 1+ H Urine Ketones Trace H Urine Blood Large H Ur Leukocyte Esterase Large H Urine RBC >182 H Urine WBC 119 H Ur Squamous Epith Cells 19 H Urine Bacteria Moderate H Hyaline Casts 8 H Urine Mucus Occasional H 11/17/24 11/17/24 11/18/24 04:59 04:59 09:58 WBC 14.60 H 18.1 H RBC 3.36 L 3.34 L Hgb 9.4 L 9.4 L Hct 30.1 L 29.4 L MCHC 31.2 L RDW 15.1 H Immature Gran # 0.10 H Neutrophils # 12.18 H 16.3 H Lymphocytes # Sodium Carbon Dioxide BUN/Creatinine Ratio 22.86 H Glucose 146 H Calcium 8.0 L Total Bilirubin 0.2 L ALT Total Protein 5.4 L Albumin 3.3 L Albumin/Globulin Ratio 1.57 L Urine Appearance Urine Protein Urine Ketones Urine Blood Ur Leukocyte Esterase Urine RBC Urine WBC Ur Squamous Epith Cells Urine Bacteria Hyaline Casts Urine Mucus 11/18/24 11/19/24 11/19/24 09:58 04:09 04:09 WBC 21.54 H RBC 3.11 L Hgb 8.7 L Hct 27.9 L MCHC 31.2 L RDW 15.3 H Immature Gran # 0.28 H Neutrophils # 18.09 H Lymphocytes # Sodium 129 L Carbon Dioxide BUN/Creatinine Ratio Glucose 155 H 129 H Calcium 8.1 L 8.2 L Total Bilirubin ALT 41 H Total Protein 5.0 L 5.1 L Albumin 2.6 L 3.0 L Albumin/Globulin Ratio 1.43 L Urine Appearance Urine Protein Urine Ketones Urine Blood Ur Leukocyte Esterase Urine RBC Urine WBC Ur Squamous Epith Cells Urine Bacteria Hyaline Casts Urine Mucus Assessment and Plan Assessment: This is a 48-year-old woman who presents emergency department because of genera lized weakness, body aches. She was found to have acute urinary tract infection, left hydronephrosis secondary due to calculus and she had status post stent on 11/16/2024. She is having worsening of her headache. Worsening migraine likely exacerbated by her recent acute urinary tract infection. Acute urinary tract infection Hydrocephalus over the left second due to calculus status post stent History of migraine Plan: Myself and infection disease specialist notified her about considering lumbar puncture to rule out any meningitis which seems unlikely. This does not seem encephalitis. But the patient refused. Patient was given baclofen 10 mg once. By the primary team. I will continue the baclofen 5 mg 1 tablet twice daily for 3 days and after that recommend as needed. Continue Fioricet 1 tablet every 8 hours Today the patient was given Compazine. Started patient on gabapentin 300 mg 1 tablet 3 times daily as needed for the headache. Consider IV hydration Stenosis on board Will defer the rest of the medical management to primary and other specialist Plan discussed with the patient and her nurse Thank you for the consultation. Time with Patient: Greater than 30
[2024-11-19] MEDS: GABAPENTIN 300 MG CAP PO PRN (14:58)
[2024-11-19] MEDS: BACLOFEN 10 MG TAB PO SCH (14:58)
--- NOTE | 2024-11-19 17:56 | P.PN ---
Subjective Progress Note Date: 11/19/24 Principal diagnosis: Reason for follow-up is complicated UTI Patient is a 48-year-old female with a past medical history significant for asthma kidney stone presenting to the hospital for flank pain and generalized bodyaches has been diagnosed with a complicated UTI in this patient with a left-sided hydronephrosis requiring left ureteral stent placement urine culture positive for Klebsiella with persistent fever prompted this consultation. On today's evaluation that is 11/19/2024,the patient did have resolution of her fever and denies any fever or any chills, patient is breathing comfortably on room air, the patient denies chest pain shortness of breath and no significant cough, patient denies abdominal pain, no nausea vomiting or diarrhea. Has been complaining of mostly headache. The patient white count is up to 21.54 creatinine is 0.3 Objective - Vital Signs Vital signs: Vital Signs Temp 98.6 F 11/19/24 07:13 Pulse 95 11/19/24 07:13 Resp 16 11/19/24 07:13 BP 155/92 11/19/24 07:13 Pulse Ox 91 L 11/19/24 07:13 FiO2 Intake & Output 11/18/24 11/19/24 11/19/24 18:59 06:59 18:59 Intake Total 1080 240 Balance 1080 240 Intake: Oral 1080 240 Other: Voiding Method Toilet Toilet Toilet # Voids 1 2 - Exam GENERAL DESCRIPTION: Middle-age female up in the chair in no distress RESPIRATORY SYSTEM: Unlabored breathing , decreased breath sounds at bases HEART: S1 S2 regular rate and rhythm , ABDOMEN: Soft , no tenderness EXTREMITIES: No edema feet - Labs CBC & Chem 7: 11/19/24 04:09 11/19/24 04:09 Labs: Abnormal Lab Results - Last 24 Hours (Table) 11/19/24 11/19/24 Range/Units 04:09 04:09 WBC 21.54 H (4.50-10.00) X 10*3/uL RBC 3.11 L (4.10-5.20) X 10*6/uL Hgb 8.7 L (12.0-15.0) g/dL Hct 27.9 L (37.2-46.3) % MCHC 31.2 L (32.0-37.0) g/dL RDW 15.3 H (11.5-14.5) % Immature Gran # 0.28 H (0.00-0.04) X 10*3/uL Neutrophils # 18.09 H (1.80-7.70) X 10*3/uL Glucose 129 H (70-110) mg/dL Calcium 8.2 L (8.7-10.3) mg/dL Total Protein 5.1 L (6.2-8.2) g/dL Albumin 3.0 L (3.8-4.9) g/dL Albumin/Globulin Ratio 1.43 L (1.60-3.17) Ratio Microbiology - Last 24 Hours (Table) 11/15/24 23:54 Blood Culture - Preliminary Blood 11/17/24 22:22 Blood Culture - Preliminary Blood 11/16/24 12:57 Anaerobic Culture - Preliminary Urine,Ureter Assessment and Plan (1) Sepsis Current Visit: Yes Status: Acute Code(s): A41.9 - SEPSIS, UNSPECIFIED ORGANISM SNOMED Code(s): 29784360 (2) Urinary tract infection Current Visit: Yes Status: Acute Code(s): N39.0 - URINARY TRACT INFECTION, SITE NOT SPECIFIED SNOMED Code(s): 21131114 Plan: 1patient with sepsis in this patient who did have fever tachycardia elevated w leanne count source is complicated UTI in this patient with a left-sided hydronephrosis status post left ureteral stent placement with urine culture growing Klebsiella to be the likely pathogen 2-patient did have resolution of her fever however worsening of the white count need to be monitored closely if any further worsening white count we did CT the patient evidence of any abscess continue with Rocephin at this point multiple question answered Dictation was produced using [employer] software. please excuse any grammatical, word or spelling errors. Time with Patient: Less than 30
[2024-11-20] MEDS: ALBUTEROL NEBULIZED 2.5 MG/3 ML INHALATION PRN (01:58)
[2024-11-20 08:38] LABS: HCT 28.7 % (37.2-46.3); MCH 27.9 pg (27.0-32.0); MCHC 31.4 g/dL (32.0-37.0); MCV 88.9 FL (80.0-97.0); Mean Platelet Volume 11.1 FL (9.5-12.2); NRBC Per 100 WBC 0.02 X 10*3/uL (0.00-0.01); Platelet Count 382 X 10*3/uL (140-440); RBC 3.23 X 10*6/uL (4.10-5.20); RDW 14.9 % (11.5-14.5); WBC 15.17 X 10*3/uL (4.50-10.00)
[2024-11-20 08:39] LABS: Basophils # (A) 0.08 X 10*3/uL (0.00-0.10); Basophils % (A) 0.5 %; Eosinophils # (A) 0.15 X 10*3/uL (0.04-0.35); Lymphocytes # (A) 1.97 X 10*3/uL (0.90-5.00); Monocytes # (A) 0.58 X 10*3/uL (0.20-1.00); Monocytes % (A) 3.8 %; Neutrophils # (A) 12.08 X 10*3/uL (1.80-7.70); Neutrophils % (A) 79.7 %
[2024-11-20 09:03] LABS: ALT 32 U/L (8-44); AST 24 U/L (13-35); Albumin 2.9 g/dL (3.8-4.9); Albumin/Globulin Ratio 1.32 Ratio (1.60-3.17); Alkaline Phosphatase 111 U/L (41-126); BUN/Creat Ratio 16.67 Ratio (12.00-20.00); Calcium 8.2 mg/dL (8.7-10.3); Chloride 104 mmol/L (96-109); Globulin 2.2 g/dL (1.6-3.3); Glucose 119 mg/dL (70-110); Potassium 4.1 mmol/L (3.5-5.5); Sodium 139 mmol/L (135-145); Total Bilirubin 0.2 mg/dL (0.3-1.2); Total Protein 5.1 g/dL (6.2-8.2)
--- NOTE | 2024-11-20 10:01 | P.PN ---
Subjective Progress Note Date: 11/20/24 Dorothea Douglas is a 48-year-old female who presented to [facility] emergency room with a chief complaint of abdominal pain, fever and muscle aches over the past few weeks. She was evaluated in the emergency room vital examination on presentation revealed temp 101.6, heart rate 110, respiratory rate 18, blood pressure 142/72 with a pulse ox of 97% on room air Laboratory data reveals. White blood cell 5.6, hemoglobin 10.5 creatinine 0.52 bun 14. UA positive for urinary tract infection influenza RSV and COVID-19 negative Testing in the emergency room revealed CT of abdomen and pelvis completed showing mild left hydronephrosis secondary to obstructing 6 mm calculus at the ureteropelvic junction. Lobular contour to the uterus consistent compatible fibroid change small fat-containing umbilical hernia Patient was admitted to medical floor for further evaluation and treatment. Uro logy services consulted patient started on IV antibiotics urine and blood cultures ordered Past medical history is significant for previous kidney stones and has followed up with urology in the past never required any cystoscopy or intervention. Additional history includes asthma. On review of systems patient is alert and oriented x 3. Patient is complaining of some muscle aches and headache. Some left flank pain noted upon exam. Patient denies chest pain or shortness of breath. Patient denies nausea vomiting or diarrhea. Patient denies any urinary burning or frequency On 11/17/2024 patient was seen and examined on the medical floor she is mostly complaining of right-sided headache and neck pain otherwise she denies any complaints there is no fever or chills no dizziness no chest pain no shortness of breath no cough no nausea or vomiting no abdominal pain no diarrhea and no urinary symptoms urine culture is positive for gram-negative bacilli patient remains on IV ceftriaxone awaiting culture sensitivity , will follow in a.m. On 11/18/2024 patient is alert and oriented x 3. Patient having temp of 103.1 last night infectious disease services have been consulted. Urine culture growing Klebsiella pneumonia remains on IV Rocephin. Patient denies chest pain or shortness of breath. Patient is only complaint is headache. Patient denies nausea vomiting or diarrhea. Patient denies any urinary burning frequency On 11/19/2024 patient is alert and oriented x 3. Neurology services were consulted and medications adjusted. Patient reports she had felt better yesterday. Still having some headache today. White blood cell is trending down. Patient has not temp this a.m. 100.3. Awaiting further recommendations from infectious disease and neurology services. Patient denies chest pain or shortness of breath. Patient denies nausea vomiting or diarrhea. Patient denies any urinary burning or frequency Objective - Vital Signs Vital signs: Vital Signs Temp 100.3 F H 11/20/24 06:55 Pulse 109 H 11/20/24 06:55 Resp 16 11/20/24 06:55 BP 158/95 11/20/24 06:55 Pulse Ox 90 L 11/20/24 06:55 FiO2 Intake & Output 11/19/24 11/20/24 11/20/24 18:59 06:59 18:59 Intake Total 480 240 Balance 480 240 Intake: Oral 480 240 Other: Voiding Method Toilet # Voids 3 2 - Exam In general patient is alert and oriented x 3 in no distress HEENT head normocephalic and atraumatic Neck is supple no JVD no goiter no lymphadenopathy no carotid bruit Chest examination is clear to auscultation no crackles no wheezing Cardiac exam reveals regular heart sounds S1 and S2 no gallops no murmurs Abdomen is soft nontender no organomegaly with normal bowel sounds Extremity exam reveals no edema no cyanosis or clubbing Neurological examination reveals no gross focal deficits - Labs CBC & Chem 7: 11/20/24 04:46 11/20/24 04:46 Labs: Abnormal Lab Results - Last 24 Hours (Table) 11/19/24 11/20/24 11/20/24 Range/Units 13:10 04:46 04:46 WBC 15.17 H (4.50-10.00) X 10*3/uL RBC 3.23 L (4.10-5.20) X 10*6/uL Hgb 9.0 L (12.0-15.0) g/dL Hct 28.7 L (37.2-46.3) % MCHC 31.4 L (32.0-37.0) g/dL RDW 14.9 H (11.5-14.5) % Immature Gran # 0.31 H (0.00-0.04) X 10*3/uL Neutrophils # 12.08 H (1.80-7.70) X 10*3/uL NRBC/100 WBC Diff 0.02 H (0.00-0.01) X 10*3/uL Glucose 119 H (70-110) mg/dL Calcium 8.2 L (8.7-10.3) mg/dL Total Bilirubin 0.2 L (0.3-1.2) mg/dL Total Protein 5.1 L (6.2-8.2) g/dL Albumin 2.9 L (3.8-4.9) g/dL Albumin/Globulin Ratio 1.32 L (1.60-3.17) Ratio Urine Protein Trace H (Negative) Urine Blood Moderate H (Negative) Ur Leukocyte Esterase Large H (Negative) Urine RBC 14 H (0-5) /hpf Urine WBC 20 H (0-5) /hpf Urine Bacteria Rare H (None) /hpf Urine Mucus Rare H (None) /hpf Microbiology - Last 24 Hours (Table) 11/17/24 22:22 Blood Culture - Preliminary Blood 11/16/24 12:57 Anaerobic Culture - Preliminary Urine,Ureter Gram Neg Bacilli 11/15/24 23:54 Blood Culture - Preliminary Blood Assessment and Plan Plan: Left urolithiasis Left hydronephrosis Febrile illness with evidence of urinary tract infection History of asthma no exacerbation at this time History of migraines Headache At this time patient is admitted to medical floor She was started on IV ceftriaxone in the emergency room Urology consultation was requested Infectious disease and neurology services following DVT prophylaxis lovenox GI prophylax Protonix
--- NOTE | 2024-11-20 13:15 | P.PN ---
Subjective Progress Note Date: 11/20/24 I am following-up with patient and feels her headache is better. She feels now able to walk around. Denies any new neurological issues. Objective - Vital Signs Vital signs: Vital Signs Temp 100.3 F H 11/20/24 06:55 Pulse 109 H 11/20/24 06:55 Resp 16 11/20/24 06:55 BP 158/95 11/20/24 06:55 Pulse Ox 90 L 11/20/24 06:55 FiO2 Intake & Output 11/19/24 11/20/24 11/20/24 18:59 06:59 18:59 Intake Total 480 240 118 Balance 480 240 118 Intake: Oral 480 240 118 Other: Voiding Method Toilet Toilet # Voids 3 2 - Exam GENERAL: The patient is lying in bed and is not in acute distress. HENT: Supple neck. NEUROLOGICAL: Higher mental function: The patient is awake, alert, oriented to self, place and time. Patient is following commands. No aphasia and no neglect. Cranial nerves: The pupils are round, equal and reactive to light and accommodation. Visual major are full to confrontation throughout. Extraocular movement is intact no nystagmus is noted. Facial sensation is normal to touch throughout. The facial strength is normal throughout. Hearing is normal bilaterally to hand rub. Tongue is midline and moved [id number] without any difficulty. No dysarthria is noted. Shoulder shrug is normal bilaterally. Motor: The strength is 5 over 5 throughout. Normal tone and bulk. Cerebellum: Normal finger to nose bilaterally. Sensation: Sensation is normal to touch throughout. Reflexes (right/left): 2+ throughout. Plantars are downgoing bilaterally. - Labs CBC & Chem 7: 11/20/24 04:46 11/20/24 04:46 Labs: Abnormal Lab Results - Last 24 Hours (Table) 11/19/24 11/20/24 11/20/24 Range/Units 13:10 04:46 04:46 WBC 15.17 H (4.50-10.00) X 10*3/uL RBC 3.23 L (4.10-5.20) X 10*6/uL Hgb 9.0 L (12.0-15.0) g/dL Hct 28.7 L (37.2-46.3) % MCHC 31.4 L (32.0-37.0) g/dL RDW 14.9 H (11.5-14.5) % Immature Gran # 0.31 H (0.00-0.04) X 10*3/uL Neutrophils # 12.08 H (1.80-7.70) X 10*3/uL NRBC/100 WBC Diff 0.02 H (0.00-0.01) X 10*3/uL Glucose 119 H (70-110) mg/dL Calcium 8.2 L (8.7-10.3) mg/dL Total Bilirubin 0.2 L (0.3-1.2) mg/dL Total Protein 5.1 L (6.2-8.2) g/dL Albumin 2.9 L (3.8-4.9) g/dL Albumin/Globulin Ratio 1.32 L (1.60-3.17) Ratio Urine Protein Trace H (Negative) Urine Blood Moderate H (Negative) Ur Leukocyte Esterase Large H (Negative) Urine RBC 14 H (0-5) /hpf Urine WBC 20 H (0-5) /hpf Urine Bacteria Rare H (None) /hpf Urine Mucus Rare H (None) /hpf Microbiology - Last 24 Hours (Table) 11/17/24 22:22 Blood Culture - Preliminary Blood 11/16/24 12:57 Anaerobic Culture - Preliminary Urine,Ureter Gram Neg Bacilli 11/15/24 23:54 Blood Culture - Preliminary Blood Assessment and Plan Assessment: This is a 48-year-old woman who presents emergency department because of generalized weakness, body aches. She was found to have acute urinary tract infection, left hydronephrosis secondary due to calculus and she had status post stent on 11/16/2024. She is having worsening of her headache. Worsening migraine likely exacerbated by her recent acute urinary tract infection--headache is improving Acute urinary tract infection Hydrocephalus over the left second due to calculus status post stent History of migraine Plan: Myself and infection disease specialist notified her about considering lumbar puncture to rule out any meningitis which seems unlikely. This does not seem encephalitis. But the patient refused. Patient was given baclofen 10 mg once. By the primary team. I will continue the baclofen 5 mg 1 tablet twice daily for 3 days (today is day 2) and after that recommend as needed. Continue Fioricet 1 tablet every 8 hours Today the patient was given Compazine. Started patient on gabapentin 300 mg 1 tablet 3 times daily as needed for the headache. I.D. on board Will defer the rest of the medical management to primary and other specialist Plan discussed with the patient and her nurse
--- NOTE | 2024-11-20 14:47 | P.PN ---
Subjective Progress Note Date: 11/20/24 Principal diagnosis: Reason for follow-up is complicated UTI Patient is a 48-year-old female with a past medical history significant for asthma kidney stone presenting to the hospital for flank pain and generalized bodyaches has been diagnosed with a complicated UTI in this patient with a left-sided hydronephrosis requiring left ureteral stent placement urine culture positive for Klebsiella with persistent fever prompted this consultation. On today's evaluation that is 11/20/2024,the patient did have a low-grade fever 100.3 at 7 AM patient mentioned all some improvement in her headache no chest pain shortness with or cough no abdominal pain no diarrhea. Patient white count is down to 15.17, creatinine 0.6 repeat urine culture growing gram-negative bacilli Objective - Vital Signs Vital signs: Vital Signs Temp 100.3 F H 11/20/24 06:55 Pulse 109 H 11/20/24 06:55 Resp 16 11/20/24 06:55 BP 158/95 11/20/24 06:55 Pulse Ox 90 L 11/20/24 06:55 FiO2 Intake & Output 11/19/24 11/20/24 11/20/24 18:59 06:59 18:59 Intake Total 480 240 118 Balance 480 240 118 Intake: Oral 480 240 118 Other: Voiding Method Toilet Toilet # Voids 3 2 - Exam GENERAL DESCRIPTION: Middle-age female up in the chair in no distress RESPIRATORY SYSTEM: Unlabored breathing , decreased breath sounds at bases HEART: S1 S2 regular rate and rhythm , ABDOMEN: Soft , no tenderness EXTREMITIES: No edema feet - Labs CBC & Chem 7: 11/20/24 04:46 11/20/24 04:46 Labs: Abnormal Lab Results - Last 24 Hours (Table) 11/19/24 11/20/24 11/20/24 Range/Units 13:10 04:46 04:46 WBC 15.17 H (4.50-10.00) X 10*3/uL RBC 3.23 L (4.10-5.20) X 10*6/uL Hgb 9.0 L (12.0-15.0) g/dL Hct 28.7 L (37.2-46.3) % MCHC 31.4 L (32.0-37.0) g/dL RDW 14.9 H (11.5-14.5) % Immature Gran # 0.31 H (0.00-0.04) X 10*3/uL Neutrophils # 12.08 H (1.80-7.70) X 10*3/uL NRBC/100 WBC Diff 0.02 H (0.00-0.01) X 10*3/uL Glucose 119 H (70-110) mg/dL Calcium 8.2 L (8.7-10.3) mg/dL Total Bilirubin 0.2 L (0.3-1.2) mg/dL Total Protein 5.1 L (6.2-8.2) g/dL Albumin 2.9 L (3.8-4.9) g/dL Albumin/Globulin Ratio 1.32 L (1.60-3.17) Ratio Urine Protein Trace H (Negative) Urine Blood Moderate H (Negative) Ur Leukocyte Esterase Large H (Negative) Urine RBC 14 H (0-5) /hpf Urine WBC 20 H (0-5) /hpf Urine Bacteria Rare H (None) /hpf Urine Mucus Rare H (None) /hpf Microbiology - Last 24 Hours (Table) 11/17/24 22:22 Blood Culture - Preliminary Blood 11/16/24 12:57 Anaerobic Culture - Preliminary Urine,Ureter Gram Neg Bacilli 11/15/24 23:54 Blood Culture - Preliminary Blood Assessment and Plan (1) Sepsis Current Visit: Yes Status: Acute Code(s): A41.9 - SEPSIS, UNSPECIFIED ORGANI SM SNOMED Code(s): 44482611 (2) Urinary tract infection Current Visit: Yes Status: Acute Code(s): N39.0 - URINARY TRACT INFECTION, SITE NOT SPECIFIED SNOMED Code(s): 61198030 Plan: 1patient with sepsis in this patient who did have fever tachycardia elevated white count source is complicated UTI in this patient with a left-sided hydronephrosis status post left ureteral stent placement with urine culture growing Klebsiella to be the likely pathogen 2-patient have improvement in her fever pattern except low-grade fever this morning however the white count is trending down and the patient mention improvement clinically we will continue with Rocephin while waiting for sensitivity of the gram-negative growing in the cultures to determine discharge antibiotics Dictation was produced using [employer] dictation software. please excuse any grammatical, word or spelling errors. Time with Patient: Less than 30
[2024-11-21 08:10] LABS: Basophils # (A) 0.09 X 10*3/uL (0.00-0.10); Basophils % (A) 0.6 %; Eosinophils # (A) 0.31 X 10*3/uL (0.04-0.35); Eosinophils % (A) 2.2 %; HCT 29.3 % (37.2-46.3); HGB 9.2 g/dL (12.0-15.0); Lymphocytes # (A) 2.67 X 10*3/uL (0.90-5.00); Lymphocytes % (A) 19.2 %; MCH 27.6 pg (27.0-32.0); MCHC 31.4 g/dL (32.0-37.0); Mean Platelet Volume 10.8 FL (9.5-12.2); Monocytes # (A) 0.58 X 10*3/uL (0.20-1.00); Monocytes % (A) 4.2 %; NRBC Per 100 WBC 0.06 X 10*3/uL (0.00-0.01); Neutrophils # (A) 9.55 X 10*3/uL (1.80-7.70); Neutrophils % (A) 68.8 %; Platelet Count 422 X 10*3/uL (140-440); RBC 3.33 X 10*6/uL (4.10-5.20); WBC 13.89 X 10*3/uL (4.50-10.00)
[2024-11-21] MEDS: IBUPROFEN 800 MG TAB PO PRN (08:22)
[2024-11-21 08:25] LABS: Blood Urea Nitrogen 8.7 mg/dL (9.0-27.0); Chloride 104 mmol/L (96-109); Glucose 124 mg/dL (70-110); Potassium 3.8 mmol/L (3.5-5.5); Sodium 139 mmol/L (135-145)
[2024-11-21 08:26] LABS: ALT 38 U/L (8-44); AST 32 U/L (13-35); Albumin 3.1 g/dL (3.8-4.9); Albumin/Globulin Ratio 1.19 Ratio (1.60-3.17); Alkaline Phosphatase 133 U/L (41-126); Calcium 8.5 mg/dL (8.7-10.3); Carbon Dioxide 24.8 mmol/L (21.6-31.8); Globulin 2.6 g/dL (1.6-3.3); Total Bilirubin <0.2 mg/dL (0.3-1.2); Total Protein 5.7 g/dL (6.2-8.2)
--- NOTE | 2024-11-21 09:48 | P.PN ---
Subjective Progress Note Date: 11/21/24 Dorothea Douglas is a 48-year-old female who presented to [facility] emergency room with a chief complaint of abdominal pain, fever and muscle aches over the past few weeks. She was evaluated in the emergency room vital examination on presentation revealed temp 101.6, heart rate 110, respiratory rate 18, blood pressure 142/72 with a pulse ox of 97% on room air Laboratory data reveals. White blood cell 5.6, hemoglobin 10.5 creatinine 0.52 bun 14. UA positive for urinary tract infection influenza RSV and COVID-19 negative Testing in the emergency room revealed CT of abdomen and pelvis completed showing mild left hydronephrosis secondary to obstructing 6 mm calculus at the ureteropelvic junction. Lobular contour to the uterus consistent compatible fibroid change small fat-containing umbilical hernia Patient was admitted to medical floor for further evaluation and treatment. Uro logy services consulted patient started on IV antibiotics urine and blood cultures ordered Past medical history is significant for previous kidney stones and has followed up with urology in the past never required any cystoscopy or intervention. Additional history includes asthma. On review of systems patient is alert and oriented x 3. Patient is complaining of some muscle aches and headache. Some left flank pain noted upon exam. Patient denies chest pain or shortness of breath. Patient denies nausea vomiting or diarrhea. Patient denies any urinary burning or frequency On 11/17/2024 patient was seen and examined on the medical floor she is mostly complaining of right-sided headache and neck pain otherwise she denies any complaints there is no fever or chills no dizziness no chest pain no shortness of breath no cough no nausea or vomiting no abdominal pain no diarrhea and no urinary symptoms urine culture is positive for gram-negative bacilli patient remains on IV ceftriaxone awaiting culture sensitivity , will follow in a.m. On 11/18/2024 patient is alert and oriented x 3. Patient having temp of 103.1 last night infectious disease services have been consulted. Urine culture growing Klebsiella pneumonia remains on IV Rocephin. Patient denies chest pain or shortness of breath. Patient is only complaint is headache. Patient denies nausea vomiting or diarrhea. Patient denies any urinary burning frequency On 11/19/2024 patient is alert and oriented x 3. Neurology services were consulted and medications adjusted. Patient reports she had felt better yesterday. Still having some headache today. White blood cell is trending down. Patient has not temp this a.m. 100.3. Awaiting further recommendations from infectious disease and neurology services. Patient denies chest pain or shortness of breath. Patient denies nausea vomiting or diarrhea. Patient denies any urinary burning or frequency On 11/21/2024 patient is alert and oriented x 3. Patient was afebrile throughout the night and white blood cell is trending down remains on high-dose Rocephin. Patient still complaining of headache possibly due to positioning in bed. Awaiting infectious disease clearance and recommendation for discharge. Patient denies chest pain or shortness of breath. Patient denies nausea vomiting or diarrhea. Patient denies any urinary burning or frequency. Blood pressure remains high Norvasc has been added. Objective - Vital Signs Vital signs: Vital Signs Temp 98.2 F 11/21/24 08:00 Pulse 60 11/21/24 08:00 Resp 16 11/21/24 08:00 BP 169/97 11/21/24 08:00 Pulse Ox 97 11/21/24 08:00 FiO2 Intake & Output 11/20/24 11/21/24 11/21/24 18:59 06:59 18:59 Intake Total 236 Balance 236 Intake: Oral 236 Other: Voiding Method Toilet Toilet # Voids 3 4 - Exam In general patient is alert and oriented x 3 in no distress HEENT head normocephalic and atraumatic Neck is supple no JVD no goiter no lymphadenopathy no carotid bruit Chest examination is clear to auscultation no crackles no wheezing Cardiac exam reveals regular heart sounds S1 and S2 no gallops no murmurs Abdomen is soft nontender no organomegaly with normal bowel sounds Extremity exam reveals no edema no cyanosis or clubbing Neurological examination reveals no gross focal deficits - Labs CBC & Chem 7: 11/21/24 04:55 11/21/24 04:55 Labs: Abnormal Lab Results - Last 24 Hours (Table) 11/21/24 11/21/24 Range/Units 04:55 04:55 WBC 13.89 H (4.50-10.00) X 10*3/uL RBC 3.33 L (4.10-5.20) X 10*6/uL Hgb 9.2 L (12.0-15.0) g/dL Hct 29.3 L (37.2-46.3) % MCHC 31.4 L (32.0-37.0) g/dL RDW 15.0 H (11.5-14.5) % Immature Gran # 0.69 H (0.00-0.04) X 10*3/uL Neutrophils # 9.55 H (1.80-7.70) X 10*3/uL NRBC/100 WBC Diff 0.06 H (0.00-0.01) X 10*3/uL BUN 8.7 L (9.0-27.0) mg/dL Creatinine 0.5 L (0.6-1.5) mg/dL Glucose 124 H (70-110) mg/dL Calcium 8.5 L (8.7-10.3) mg/dL Total Bilirubin <0.2 L (0.3-1.2) mg/dL Alkaline Phosphatase 133 H (41-126) U/L Total Protein 5.7 L (6.2-8.2) g/dL Albumin 3.1 L (3.8-4.9) g/dL Albumin/Globulin Ratio 1.19 L (1.60-3.17) Ratio Microbiology - Last 24 Hours (Table) 11/17/24 22:22 Blood Culture - Preliminary Blood 11/16/24 12:57 Anaerobic Culture - Final Urine,Ureter Klebsiella pneumoniae 11/19/24 13:10 Urine Culture - Final Urine,Voided Assessment and Plan Plan: Left urolithiasis Left hydronephrosis Febrile illness with evidence of urinary tract infection History of asthma no exacerbation at this time History of migraines Headache Essential hypertension Norvasc added At this time patient is admitted to medical floor She was started on IV ceftriaxone in the emergency room Urology consultation was requested Infectious disease and neurology services following DVT prophylaxis lovenox GI prophylax Protonix
[2024-11-21] MEDS: amLODIPine 5 MG TAB PO SCH (10:29)
--- NOTE | 2024-11-21 12:44 | P.PN ---
Subjective Progress Note Date: 11/21/24 I am following up with the patient and today she feels her headache is worse since she did not sleep at night and was having kidney pain. Objective - Vital Signs Vital signs: Vital Signs Temp 98.2 F 11/21/24 08:00 Pulse 60 11/21/24 08:00 Resp 16 11/21/24 08:00 BP 169/97 11/21/24 08:00 Pulse Ox 97 11/21/24 08:00 FiO2 Intake & Output 11/20/24 11/21/24 11/21/24 18:59 06:59 18:59 Intake Total 236 Balance 236 Intake: Oral 236 Other: Voiding Method Toilet Toilet # Voids 3 4 - Exam GENERAL: The patient is lying in bed and is not in acute distress. HENT: Supple neck. NEUROLOGICAL: Higher mental function: The patient is awake, alert, oriented to self, place and time. Patient is following commands. No aphasia and no neglect. Cranial nerves: The pupils are round, equal and reactive to light and accommodation. Visual major are full to confrontation throughout. Extraocular movement is intact no nystagmus is noted. Facial sensation is normal to touch throughout. The facial strength is normal throughout. Hearing is normal bilaterally to hand rub. Tongue is midline and moved [id number] without any difficulty. No dysarthria is noted. Shoulder shrug is normal bilaterally. Motor: The strength is 5 over 5 throughout. Normal tone and bulk. Cerebellum: Normal finger to nose bilaterally. Sensation: Sensation is normal to touch throughout. Reflexes (right/left): 2+ throughout. Plantars are downgoing bilaterally. - Labs CBC & Chem 7: 11/21/24 04:55 11/21/24 04:55 Labs: Abnormal Lab Results - Last 24 Hours (Table) 11/21/24 11/21/24 Range/Units 04:55 04:55 WBC 13.89 H (4.50-10.00) X 10*3/uL RBC 3.33 L (4.10-5.20) X 10*6/uL Hgb 9.2 L (12.0-15.0) g/dL Hct 29.3 L (37.2-46.3) % MCHC 31.4 L (32.0-37.0) g/dL RDW 15.0 H (11.5-14.5) % Immature Gran # 0.69 H (0.00-0.04) X 10*3/uL Neutrophils # 9.55 H (1.80-7.70) X 10*3/uL NRBC/100 WBC Diff 0.06 H (0.00-0.01) X 10*3/uL BUN 8.7 L (9.0-27.0) mg/dL Creatinine 0.5 L (0.6-1.5) mg/dL Glucose 124 H (70-110) mg/dL Calcium 8.5 L (8.7-10.3) mg/dL Total Bilirubin <0.2 L (0.3-1.2) mg/dL Alkaline Phosphatase 133 H (41-126) U/L Total Protein 5.7 L (6.2-8.2) g/dL Albumin 3.1 L (3.8-4.9) g/dL Albumin/Globulin Ratio 1.19 L (1.60-3.17) Ratio Microbiology - Last 24 Hours (Table) 11/17/24 22:22 Blood Culture - Preliminary Blood 11/16/24 12:57 Anaerobic Culture - Final Urine,Ureter Klebsiella pneumoniae 11/19/24 13:10 Urine Culture - Final Urine,Voided Assessment and Plan Assessment: This is a 48-year-old woman who presents emergency department because of generalized weakness, body aches. She was found to have acute urinary tract infection, left hydronephrosis secondary due to calculus and she had status post stent on 11/16/2024. She is having worsening of her headache. Worsening migraine likely exacerbated by her recent acute urinary tract infection--headache is improving Acute urinary tract infection Hydrocephalus over the left second due to calculus status post stent History of migraine Plan: Myself and infection disease specialist notified her about considering lumbar puncture to rule out any meningitis which seems unlikely. This does not seem encephalitis. But the patient continue to refuse. Patient was given baclofen 10 mg once. By the primary team. I will continue the baclofen 5 mg 1 tablet twice daily for 3 days (today is day 3) and after that recommend as needed. Continue Fioricet 1 tablet every 8 hours Today the patient was given Compazine. Started patient on gabapentin 300 mg 1 tablet 3 times daily as needed for the headache. I.D. on board Will defer the rest of the medical management to primary and other specialist Plan discussed with the patient and her nurse Dr. Mcallister will resume neurology service tomorrow A.M. Time with Patient: Less than 30
[2024-11-21 13:24] VITALS: BMI 23.6
--- NOTE | 2024-11-21 15:42 | P.PN ---
Subjective Progress Note Date: 11/21/24 Principal diagnosis: Reason for follow-up is complicated UTI Patient is a 48-year-old female with a past medical history significant for asthma kidney stone presenting to the hospital for flank pain and generalized bodyaches has been diagnosed with a complicated UTI in this patient with a left-sided hydronephrosis requiring left ureteral stent placement urine culture positive for Klebsiella with persistent fever prompted this consultation. On today's evaluation that is 11/21/2024, the patient continues to be afebrile, the patient is on room air and breathing comfortably, the Pt denies having any chest pain or cough, the patient still complaining of some headache and some pain to the left flank area but no vomiting or diarrhea. Patient white count down to 13.89, creatinine 0.5 blood and urine culture repeat has been negative Objective - Vital Signs Vital signs: Vital Signs Temp 98.2 F 11/21/24 08:00 Pulse 60 11/21/24 08:00 Resp 16 11/21/24 08:00 BP 169/97 11/21/24 08:00 Pulse Ox 97 11/21/24 08:00 FiO2 Intake & Output 11/20/24 11/21/24 11/21/24 18:59 06:59 18:59 Intake Total 236 Balance 236 Intake: Oral 236 Other: Voiding Method Toilet Toilet # Voids 3 4 - Exam GENERAL DESCRIPTION: Middle-age female up in the chair in no distress RESPIRATORY SYSTEM: Unlabored breathing , decreased breath sounds at bases HEART: S1 S2 regular rate and rhythm , ABDOMEN: Soft , no tenderness EXTREMITIES: No edema feet - Labs CBC & Chem 7: 11/21/24 04:55 11/21/24 04:55 Labs: Abnormal Lab Results - Last 24 Hours (Table) 11/21/24 11/21/24 Range/Units 04:55 04:55 WBC 13.89 H (4.50-10.00) X 10*3/uL RBC 3.33 L (4.10-5.20) X 10*6/uL Hgb 9.2 L (12.0-15.0) g/dL Hct 29.3 L (37.2-46.3) % MCHC 31.4 L (32.0-37.0) g/dL RDW 15.0 H (11.5-14.5) % Immature Gran # 0.69 H (0.00-0.04) X 10*3/uL Neutrophils # 9.55 H (1.80-7.70) X 10*3/uL NRBC/100 WBC Diff 0.06 H (0.00-0.01) X 10*3/uL BUN 8.7 L (9.0-27.0) mg/dL Creatinine 0.5 L (0.6-1.5) mg/dL Glucose 124 H (70-110) mg/dL Calcium 8.5 L (8.7-10.3) mg/dL Total Bilirubin <0.2 L (0.3-1.2) mg/dL Alkaline Phosphatase 133 H (41-126) U/L Total Protein 5.7 L (6.2-8.2) g/dL Albumin 3.1 L (3.8-4.9) g/dL Albumin/Globulin Ratio 1.19 L (1.60-3.17) Ratio Microbiology - Last 24 Hours (Table) 11/17/24 22:22 Blood Culture - Preliminary Blood 11/16/24 12:57 Anaerobic Culture - Final Urine,Ureter Klebsiella pneumoniae 11/19/24 13:10 Urine Culture - Final Urine,Voided Assessment and Plan (1) Sepsis Current Visit: Yes Status: Acute Code(s): A41.9 - SEPSIS, UNSPECIFIED ORGANISM SNOMED Code(s): 32466434 (2) Urinary tract infection Current Visit: Yes Status: Acute Code(s): N39.0 - URINARY TRACT INFECTION, SITE NOT SPECIFIED SNOMED Code(s): 33606510 Plan: 1patient with sepsis in this patient who did have fever tachycardia elevated w leanne count source is complicated UTI in this patient with a left-sided hydronephrosis status post left ureteral stent placement with urine culture growing Klebsiella to be the likely pathogen 2-patient have improvement in her fever pattern and the white count is trending down blood culture have been negative we will continue with Rocephin while inpatient finishing therapy with oral Cipro x 10 days on discharge Dictation was produced using [employer] software. please excuse any grammatical, word or spelling errors. Time with Patient: Less than 30
[2024-11-21] MEDS: NYSTATIN 100,000 UNIT/ML SUSP 500,000 UNIT/5 ML CUP PO SCH (18:08)
[2024-11-21] MEDS: hydrALAZINE HCL 20 MG/ML 1 ML VIAL IVP PRN (21:49)
--- NOTE | 2024-11-22 08:54 | P.PN ---
Subjective Progress Note Date: 11/22/24 Dorothea Douglas is a 48-year-old female who presented to [facility] emergency room with a chief complaint of abdominal pain, fever and muscle aches over the past few weeks. She was evaluated in the emergency room vital examination on presentation revealed temp 101.6, heart rate 110, respiratory rate 18, blood pressure 142/72 with a pulse ox of 97% on room air Laboratory data reveals. White blood cell 5.6, hemoglobin 10.5 creatinine 0.52 bun 14. UA positive for urinary tract infection influenza RSV and COVID-19 negative Testing in the emergency room revealed CT of abdomen and pelvis completed showing mild left hydronephrosis secondary to obstructing 6 mm calculus at the ureteropelvic junction. Lobular contour to the uterus consistent compatible fibroid change small fat-containing umbilical hernia Patient was admitted to medical floor for further evaluation and treatment. Uro logy services consulted patient started on IV antibiotics urine and blood cultures ordered Past medical history is significant for previous kidney stones and has followed up with urology in the past never required any cystoscopy or intervention. Additional history includes asthma. On review of systems patient is alert and oriented x 3. Patient is complaining of some muscle aches and headache. Some left flank pain noted upon exam. Patient denies chest pain or shortness of breath. Patient denies nausea vomiting or diarrhea. Patient denies any urinary burning or frequency On 11/17/2024 patient was seen and examined on the medical floor she is mostly complaining of right-sided headache and neck pain otherwise she denies any complaints there is no fever or chills no dizziness no chest pain no shortness of breath no cough no nausea or vomiting no abdominal pain no diarrhea and no urinary symptoms urine culture is positive for gram-negative bacilli patient remains on IV ceftriaxone awaiting culture sensitivity , will follow in a.m. On 11/18/2024 patient is alert and oriented x 3. Patient having temp of 103.1 last night infectious disease services have been consulted. Urine culture growing Klebsiella pneumonia remains on IV Rocephin. Patient denies chest pain or shortness of breath. Patient is only complaint is headache. Patient denies nausea vomiting or diarrhea. Patient denies any urinary burning frequency On 11/19/2024 patient is alert and oriented x 3. Neurology services were consulted and medications adjusted. Patient reports she had felt better yesterday. Still having some headache today. White blood cell is trending down. Patient has not temp this a.m. 100.3. Awaiting further recommendations from infectious disease and neurology services. Patient denies chest pain or shortness of breath. Patient denies nausea vomiting or diarrhea. Patient denies any urinary burning or frequency On 11/21/2024 patient is alert and oriented x 3. Patient was afebrile throughout the night and white blood cell is trending down remains on high-dose Rocephin. Patient still complaining of headache possibly due to positioning in bed. Awaiting infectious disease clearance and recommendation for discharge. Patient denies chest pain or shortness of breath. Patient denies nausea vomiting or diarrhea. Patient denies any urinary burning or frequency. Blood pressure remains high Norvasc has been added. On 11/22/2024 patient was seen and examined on the medical floor, she is alert and oriented x 3 in no apparent distress she is still complaining of neck pain a nd right-sided headache, otherwise she denies any complaints at this time, blood pressure remains elevated, there is no fever or chills no dizziness no chest pain no shortness of breath no cough no nausea or vomiting no abdominal pain no diarrhea and no urinary symptoms. At this time will add losartan 50 mg p.o. daily for better blood pressure control, awaiting further recommendation and clearance from neurology and infectious disease. Objective - Vital Signs Vital signs: Vital Signs Temp 98.8 F 11/22/24 07:28 Pulse 102 H 11/22/24 07:28 Resp 18 11/22/24 07:28 BP 157/90 11/22/24 07:28 Pulse Ox 98 11/22/24 07:28 FiO2 Intake & Output 11/21/24 11/22/24 11/22/24 18:59 06:59 18:59 Intake Total 168 Balance 168 Weight 62.596 kg Intake: Intake, IV Titration 50 Amount cefTRIAXone 2 gm In 50 Sodium Chloride 0.9% 50 ml @ 100 mls/hr IVPB Q24HR [facility] Rx#:[id number] Oral 118 Other: Voiding Method Toilet # Voids 2 - Exam In general patient is alert and oriented x 3 in no distress HEENT head normocephalic and atraumatic Neck is supple no JVD no goiter no lymphadenopathy no carotid bruit Chest examination is clear to auscultation no crackles no wheezing Cardiac exam reveals regular heart sounds S1 and S2 no gallops no murmurs Abdomen is soft nontender no organomegaly with normal bowel sounds Extremity exam reveals no edema no cyanosis or clubbing Neurological examination reveals no gross focal deficits - Labs CBC & Chem 7: 11/21/24 04:55 11/21/24 04:55 Labs: Abnormal Lab Results - Last 24 Hours (Table) 11/21/24 Range/Units 04:55 BUN 8.7 L (9.0-27.0) mg/dL Creatinine 0.5 L (0.6-1.5) mg/dL Glucose 124 H (70-110) mg/dL Calcium 8.5 L (8.7-10.3) mg/dL Total Bilirubin <0.2 L (0.3-1.2) mg/dL Alkaline Phosphatase 133 H (41-126) U/L Total Protein 5.7 L (6.2-8.2) g/dL Albumin 3.1 L (3.8-4.9) g/dL Albumin/Globulin Ratio 1.19 L (1.60-3.17) Ratio Microbiology - Last 24 Hours (Table) 11/15/24 23:54 Blood Culture - Final Blood 11/17/24 22:22 Blood Culture - Preliminary Blood Assessment and Plan Plan: Left urolithiasis Left hydronephrosis Febrile illness with evidence of urinary tract infection History of asthma no exacerbation at this time History of migraines Headache Essential hypertension Norvasc added At this time patient is admitted to medical floor She was started on IV ceftriaxone in the emergency room Urology consultation was requested Infectious disease and neurology services following DVT prophylaxis lovenox GI prophylax Protonix
[2024-11-22 09:25] LABS: ALT 40 U/L (8-44); AST 24 U/L (13-35); Albumin 3.5 g/dL (3.8-4.9); Albumin/Globulin Ratio 1.25 Ratio (1.60-3.17); Alkaline Phosphatase 148 U/L (41-126); Blood Urea Nitrogen 10.6 mg/dL (9.0-27.0); Calcium 8.9 mg/dL (8.7-10.3); Carbon Dioxide 25.5 mmol/L (21.6-31.8); Chloride 104 mmol/L (96-109); Globulin 2.8 g/dL (1.6-3.3); Glucose 136 mg/dL (70-110); Potassium 4.7 mmol/L (3.5-5.5); Sodium 141 mmol/L (135-145); Total Bilirubin 0.2 mg/dL (0.3-1.2); Total Protein 6.3 g/dL (6.2-8.2)
--- NOTE | 2024-11-22 10:19 | P.PN ---
Subjective Progress Note Date: 11/22/24 48 yo female in the hospital with a uti with sepsis aggravated by and obstructng left ureteral stone. this was treated witha double j catheter by Dr Kasper on 11/16. She is growing klebsiella and is on appropriate ab. s She is afebrile and her wbc are coming soen the last which was 13k. She is quite anxious but feeling better. Objective - Vital Signs Vital signs: Vital Signs Temp 97.6 F 11/22/24 02:00 Pulse 87 11/22/24 02:00 Resp 17 11/22/24 02:00 BP 147/88 11/22/24 02:00 Pulse Ox 97 11/22/24 02:00 FiO2 Intake & Output 11/21/24 11/22/24 11/22/24 18:59 06:59 18:59 Intake Total 168 Balance 168 Weight 62.596 kg Intake: Intake, IV Titration 50 Amount cefTRIAXone 2 gm In 50 Sodium Chloride 0.9% 50 ml @ 100 mls/hr IVPB Q24HR [facility] Rx#:[id number] Oral 118 Other: Voiding Method Toilet # Voids 2 - Labs CBC & Chem 7: 11/21/24 04:55 11/22/24 05:01 Labs: Abnormal Lab Results - Last 24 Hours (Table) 11/21/24 11/21/24 Range/Units 04:55 04:55 WBC 13.89 H (4.50-10.00) X 10*3/uL RBC 3.33 L (4.10-5.20) X 10*6/uL Hgb 9.2 L (12.0-15.0) g/dL Hct 29.3 L (37.2-46.3) % MCHC 31.4 L (32.0-37.0) g/dL RDW 15.0 H (11.5-14.5) % Immature Gran # 0.69 H (0.00-0.04) X 10*3/uL Neutrophils # 9.55 H (1.80-7.70) X 10*3/uL NRBC/100 WBC Diff 0.06 H (0.00-0.01) X 10*3/uL BUN 8.7 L (9.0-27.0) mg/dL Creatinine 0.5 L (0.6-1.5) mg/dL Glucose 124 H (70-110) mg/dL Calcium 8.5 L (8.7-10.3) mg/dL Total Bilirubin <0.2 L (0.3-1.2) mg/dL Alkaline Phosphatase 133 H (41-126) U/L Total Protein 5.7 L (6.2-8.2) g/dL Albumin 3.1 L (3.8-4.9) g/dL Albumin/Globulin Ratio 1.19 L (1.60-3.17) Ratio Microbiology - Last 24 Hours (Table) 11/15/24 23:54 Blood Culture - Final Blood 11/17/24 22:22 Blood Culture - Preliminary Blood Assessment and Plan Assessment: Impression; Uti with sepsis, left pyonephrosis with obstructing left ureteral stone s/p stent placement 11/16. Plan: She is tentativley scheduled for ureteroscopy and laser lithotripsy on 11/[address] Kasper which is feasible as long as she continues to improve. From a urological standpoint she can go home prior to that. I had a 30-minute discussion with this patient about her disease, urinary sepsis, kidney stones, the surgical procedure and timing. From our standpoint I think she can go home. She should stay on oral antibiotics. Whether she will feel well enough to have the stone manipulation on 12/24/2024 will be decided by the patient and Dr. Kasper. Time with Patient: Greater than 30
[2024-11-22] MEDS: LOSARTAN 50 MG TAB PO SCH (10:32)
[2024-11-22 10:41] LABS: Basophils # (M) 0 X 10*3/uL (0.00-0.10); Eosinophils # (M) 0.68 X 10*3/uL (0.04-0.35); HGB 10.6 g/dL (12.0-15.0); Lymphocytes # (M) 2.05 X 10*3/uL (0.90-5.00); MCH 27.4 pg (27.0-32.0); MCHC 31.2 g/dL (32.0-37.0); MCV 87.9 FL (80.0-97.0); Mean Platelet Volume 10.5 FL (9.5-12.2); Metamyelocytes % 2 % (0-0); Myelocytes % 1 % (0-0); NRBC Per 100 WBC 0.06 X 10*3/uL (0.00-0.01); Neutrophils # (M) 12.65 X 10*3/uL (1.80-7.70); Neutrophils % (M) 74 %; Platelet Count 617 X 10*3/uL (140-440); RBC 3.87 X 10*6/uL (4.10-5.20); RBC Morphology Normal (Normal); RDW 15.2 % (11.5-14.5)
--- NOTE | 2024-11-22 15:52 | P.PN ---
Subjective Progress Note Date: 11/22/24 Principal diagnosis: Reason for follow-up is complicated UTI Patient is a 48-year-old female with a past medical history significant for asthma kidney stone presenting to the hospital for flank pain and generalized bodyaches has been diagnosed with a complicated UTI in this patient with a left-sided hydronephrosis requiring left ureteral stent placement urine culture positive for Klebsiella with persistent fever prompted this consultation. On today's evaluation that is 11/22/2024, patient did not have any fever and denies any chills, patient is breathing comfortably on room air, patient with no chest pain or cough patient left-sided flank pain decreased in intensity no nausea vomiting or diarrhea still complaining of headache. Patient white count is up to 17.10, creatinine 0.5 Objective - Vital Signs Vital signs: Vital Signs Temp 98.8 F 11/22/24 07:28 Pulse 102 H 11/22/24 07:28 Resp 18 11/22/24 07:28 BP 152/92 11/22/24 10:30 Pulse Ox 98 11/22/24 07:28 FiO2 Intake & Output 11/21/24 11/22/24 11/22/24 18:59 06:59 18:59 Intake Total 168 Balance 168 Weight 62.596 kg Intake: Intake, IV Titration 50 Amount cefTRIAXone 2 gm In 50 Sodium Chloride 0.9% 50 ml @ 100 mls/hr IVPB Q24HR [facility] Rx#:[id number] Oral 118 Other: Voiding Method Toilet # Voids 2 - Exam GENERAL DESCRIPTION: Middle-age female up in the chair in no distress RESPIRATORY SYSTEM: Unlabored breathing , decreased breath sounds at bases HEART: S1 S2 regular rate and rhythm , ABDOMEN: Soft , no tenderness EXTREMITIES: No edema feet - Labs CBC & Chem 7: 11/22/24 05:01 11/22/24 05:01 Labs: Abnormal Lab Results - Last 24 Hours (Table) 11/22/24 11/22/24 Range/Units 05:01 05:01 WBC 17.10 H (4.50-10.00) X 10*3/uL RBC 3.87 L (4.10-5.20) X 10*6/uL Hgb 10.6 L (12.0-15.0) g/dL Hct 34.0 L (37.2-46.3) % MCHC 31.2 L (32.0-37.0) g/dL RDW 15.2 H (11.5-14.5) % Plt Count 617 H (140-440) X 10*3/uL Neutrophils # (Manual) 12.65 H (1.80-7.70) X 10*3/uL Monocytes # (Manual) 1.20 H (0.20-1.00) X 10*3/uL Eosinophils # (Manual) 0.68 H (0.04-0.35) X 10*3/uL NRBC/100 WBC Diff 0.06 H (0.00-0.01) X 10*3/uL Creatinine 0.5 L (0.6-1.5) mg/dL BUN/Creatinine Ratio 21.20 H (12.00-20.00) Ratio Glucose 136 H (70-110) mg/dL Total Bilirubin 0.2 L (0.3-1.2) mg/dL Alkaline Phosphatase 148 H (41-126) U/L Albumin 3.5 L (3.8-4.9) g/dL Albumin/Globulin Ratio 1.25 L (1.60-3.17) Ratio Microbiology - Last 24 Hours (Table) 11/15/24 23:54 Blood Culture - Final Blood Assessment and Plan (1) Sepsis Current Visit: Yes Status: Acute Code(s): A41.9 - SEPSIS, UNSPECIFIED ORGANISM SNOMED Code(s): 64423020 (2) Urinary tract infection Current Visit: Yes Status: Acute Code(s): N39.0 - URINARY TRACT INFECTION, SITE NOT SPECIFIED SNOMED Code(s): 70975650 Plan: 1patient with sepsis in this patient who did have fever tachycardia elevated white count source is complicated UTI in this patient with a left-sided hydronephrosis status post left ureteral stent placement with urine culture growing Klebsiella to be the likely pathogen 2-patient have improvement in her fever pattern however worsening of her white count we will go ahead and check a CT of the abdominal pelvis to make sure no complications associated with the left-sided pyelonephritis continue with Rocephin multiple question concern answered Dictation was produced using [employer] software. please excuse any grammatical, word or spelling errors. Time with Patient: Less than 30
[2024-11-22] MEDS: FLUCONAZOLE 150 MG TAB PO SCH (17:57)
--- NOTE | 2024-11-23 09:23 | P.PN ---
Subjective Progress Note Date: 11/23/24 Dorothea Douglas is a 48-year-old female who presented to [facility] emergency room with a chief complaint of abdominal pain, fever and muscle aches over the past few weeks. She was evaluated in the emergency room vital examination on presentation revealed temp 101.6, heart rate 110, respiratory rate 18, blood pressure 142/72 with a pulse ox of 97% on room air Laboratory data reveals. White blood cell 5.6, hemoglobin 10.5 creatinine 0.52 bun 14. UA positive for urinary tract infection influenza RSV and COVID-19 negative Testing in the emergency room revealed CT of abdomen and pelvis completed showing mild left hydronephrosis secondary to obstructing 6 mm calculus at the ureteropelvic junction. Lobular contour to the uterus consistent compatible fibroid change small fat-containing umbilical hernia Patient was admitted to medical floor for further evaluation and treatment. Uro logy services consulted patient started on IV antibiotics urine and blood cultures ordered Past medical history is significant for previous kidney stones and has followed up with urology in the past never required any cystoscopy or intervention. Additional history includes asthma. On review of systems patient is alert and oriented x 3. Patient is complaining of some muscle aches and headache. Some left flank pain noted upon exam. Patient denies chest pain or shortness of breath. Patient denies nausea vomiting or diarrhea. Patient denies any urinary burning or frequency On 11/17/2024 patient was seen and examined on the medical floor she is mostly complaining of right-sided headache and neck pain otherwise she denies any complaints there is no fever or chills no dizziness no chest pain no shortness of breath no cough no nausea or vomiting no abdominal pain no diarrhea and no urinary symptoms urine culture is positive for gram-negative bacilli patient remains on IV ceftriaxone awaiting culture sensitivity , will follow in a.m. On 11/18/2024 patient is alert and oriented x 3. Patient having temp of 103.1 last night infectious disease services have been consulted. Urine culture growing Klebsiella pneumonia remains on IV Rocephin. Patient denies chest pain or shortness of breath. Patient is only complaint is headache. Patient denies nausea vomiting or diarrhea. Patient denies any urinary burning frequency On 11/19/2024 patient is alert and oriented x 3. Neurology services were consulted and medications adjusted. Patient reports she had felt better yesterday. Still having some headache today. White blood cell is trending down. Patient has not temp this a.m. 100.3. Awaiting further recommendations from infectious disease and neurology services. Patient denies chest pain or shortness of breath. Patient denies nausea vomiting or diarrhea. Patient denies any urinary burning or frequency On 11/21/2024 patient is alert and oriented x 3. Patient was afebrile throughout the night and white blood cell is trending down remains on high-dose Rocephin. Patient still complaining of headache possibly due to positioning in bed. Awaiting infectious disease clearance and recommendation for discharge. Patient denies chest pain or shortness of breath. Patient denies nausea vomiting or diarrhea. Patient denies any urinary burning or frequency. Blood pressure remains high Norvasc has been added. On 11/22/2024 patient was seen and examined on the medical floor, she is alert and oriented x 3 in no apparent distress she is still complaining of neck pain a nd right-sided headache, otherwise she denies any complaints at this time, blood pressure remains elevated, there is no fever or chills no dizziness no chest pain no shortness of breath no cough no nausea or vomiting no abdominal pain no diarrhea and no urinary symptoms. At this time will add losartan 50 mg p.o. daily for better blood pressure control, awaiting further recommendation and clearance from neurology and infectious disease. On 11/23/2024 patient is alert and oriented x 3. Patient was having increased white blood cell count yesterday. CT scan had been ordered per infectious disea se per nursing staff CT scan on hold due to patient's concerns about possible reaction to dye awaiting further recommendations from infectious disease patient remains on high-dose IV Rocephin. Patient reports improvement with headache. Patient has been afebrile. Patient denies chest pain or shortness of breath. Patient denies nausea vomiting or diarrhea. Patient denies any urinary burning or frequency Objective - Vital Signs Vital signs: Vital Signs Temp 97.9 F 11/23/24 07:47 Pulse 89 11/23/24 07:47 Resp 16 11/23/24 07:47 BP 155/92 11/23/24 07:47 Pulse Ox 99 11/23/24 07:47 FiO2 Intake & Output 11/22/24 11/23/24 11/23/24 18:59 06:59 18:59 Other: # Voids 2 - Exam In general patient is alert and oriented x 3 in no distress HEENT head normocephalic and atraumatic Neck is supple no JVD no goiter no lymphadenopathy no carotid bruit Chest examination is clear to auscultation no crackles no wheezing Cardiac exam reveals regular heart sounds S1 and S2 no gallops no murmurs Abdomen is soft nontender no organomegaly with normal bowel sounds Extremity exam reveals no edema no cyanosis or clubbing Neurological examination reveals no gross focal deficits - Labs CBC & Chem 7: 11/22/24 05:01 11/22/24 05:01 Labs: Abnormal Lab Results - Last 24 Hours (Table) 11/22/24 11/22/24 Range/Units 05:01 05:01 WBC 17.10 H (4.50-10.00) X 10*3/uL RBC 3.87 L (4.10-5.20) X 10*6/uL Hgb 10.6 L (12.0-15.0) g/dL Hct 34.0 L (37.2-46.3) % MCHC 31.2 L (32.0-37.0) g/dL RDW 15.2 H (11.5-14.5) % Plt Count 617 H (140-440) X 10*3/uL Neutrophils # (Manual) 12.65 H (1.80-7.70) X 10*3/uL Monocytes # (Manual) 1.20 H (0.20-1.00) X 10*3/uL Eosinophils # (Manual) 0.68 H (0.04-0.35) X 10*3/uL NRBC/100 WBC Diff 0.06 H (0.00-0.01) X 10*3/uL Creatinine 0.5 L (0.6-1.5) mg/dL BUN/Creatinine Ratio 21.20 H (12.00-20.00) Ratio Glucose 136 H (70-110) mg/dL Total Bilirubin 0.2 L (0.3-1.2) mg/dL Alkaline Phosphatase 148 H (41-126) U/L Albumin 3.5 L (3.8-4.9) g/dL Albumin/Globulin Ratio 1.25 L (1.60-3.17) Ratio Microbiology - Last 24 Hours (Table) 11/17/24 22:22 Blood Culture - Final Blood Assessment and Plan Plan: Left urolithiasis Left hydronephrosis Febrile illness with evidence of urinary tract infection History of asthma no exacerbation at this time History of migraines Headache Essential hypertension Norvasc added At this time patient is admitted to medical floor She was started on IV ceftriaxone in the emergency room Urology consultation was requested Infectious disease and neurology services following DVT prophylaxis lovenox GI prophylax Protonix
[2024-11-23 10:41] LABS: Basophils # (A) 0.1 k/uL (0-0.2); Basophils % (A) 0 %; Eosinophils # (A) 0.5 k/uL (0-0.7); Eosinophils % (A) 3 %; HCT 35.4 % (34.0-46.0); HGB 11.1 gm/dL (11.4-16.0); Hypochromasia Moderate; Lymphocytes # (A) 1.9 k/uL (1.0-4.8); Lymphocytes % (A) 11 %; MCH 27.4 pg (25.0-35.0); MCHC 31.2 g/dL (31.0-37.0); MCV 87.7 fL (80.0-100.0); Mean Platelet Volume 7.6; Monocytes # (A) 0.4 k/uL (0-1.0); Monocytes % (A) 2 %; Neutrophils # (A) 14.4 k/uL (1.3-7.7); Neutrophils % (A) 82 %; RBC 4.04 m/uL (3.80-5.40); RDW 14.7 % (11.5-15.5); WBC 17.4 k/uL (3.8-10.6)
[2024-11-23 10:51] LABS: Platelet Count 702 k/uL (150-450)
[2024-11-23 11:21] LABS: ALT 46 U/L (4-34); AST 34 U/L (14-36); African American GFR (CKD) >90 (>60 ml/min/1.73 sqM); Albumin 3.4 g/dL (3.5-5.0); Albumin/Globulin Ratio 1.1; Alkaline Phosphatase 138 U/L (38-126); Anion Gap 8 mmol/L; Blood Urea Nitrogen 19 mg/dL (7-17); Calcium 8.9 mg/dL (8.4-10.2); Carbon Dioxide 27 mmol/L (22-30); Chloride 101 mmol/L (98-107); Glucose 109 mg/dL (74-99); Non-African American GFR(CKD) >90 (>60 ml/min/1.73 sqM); Potassium 4.5 mmol/L (3.5-5.1); Sodium 136 mmol/L (137-145); Total Bilirubin 0.5 mg/dL (0.2-1.3); Total Protein 6.4 g/dL (6.3-8.2)
[2024-11-23] MEDS: IOPAMIDOL CONTRAST (ORAL USE) VIAL PO PRN (12:10)
--- NOTE | 2024-11-23 12:43 | P.PN ---
Subjective Progress Note Date: 11/23/24 Principal diagnosis: Reason for follow-up is complicated UTI Patient is a 48-year-old female with a past medical history significant for asthma kidney stone presenting to the hospital for flank pain and generalized bodyaches has been diagnosed with a complicated UTI in this patient with a left-sided hydronephrosis requiring left ureteral stent placement urine culture positive for Klebsiella with persistent fever prompted this consultation. On today's evaluation that is 11/23/2024, Patient is afebrile patient is currently on room air and denies having any shortness of breath, the patient denies any chest pain or cough, the patient denies any nausea vomiting did not have any abdominal pain and no diarrhea still complaining of some headache though mention slight improvement. Patient white count 17.4 creatinine 0.58 Objective - Vital Signs Vital signs: Vital Signs Temp 97.9 F 11/23/24 07:47 Pulse 89 11/23/24 07:47 Resp 16 11/23/24 07:47 BP 155/92 11/23/24 07:47 Pulse Ox 99 11/23/24 07:47 FiO2 Intake & Output 11/22/24 11/23/24 11/23/24 18:59 06:59 18:59 Other: # Voids 2 - Exam GENERAL DESCRIPTION: Middle-age female up in the chair in no distress RESPIRATORY SYSTEM: Unlabored breathing , decreased breath sounds at bases HEART: S1 S2 regular rate and rhythm , ABDOMEN: Soft , no tenderness EXTREMITIES: No edema feet - Labs CBC & Chem 7: 11/23/24 10:25 11/23/24 10:25 Labs: Microbiology - Last 24 Hours (Table) 11/17/24 22:22 Blood Culture - Final Blood Assessment and Plan (1) Sepsis Current Visit: Yes Status: Acute Code(s): A41.9 - SEPSIS, UNSPECIFIED ORGANISM SNOMED Code(s): 55218130 (2) Urinary tract infection Current Visit: Yes Status: Acute Code(s): N39.0 - URINARY TRACT INFECTION, SITE NOT SPECIFIED SNOMED Code(s): 23174430 Plan: 1patient with sepsis in this patient who did have fever tachycardia elevated white count source is complicated UTI in this patient with a left-sided hydronephrosis status post left ureteral stent placement with urine culture growing Klebsiella to be the likely pathogen 2-patient have improvement in her fever pattern however worsening of her white count, she was complaining of some with generalized infection for the patient has received Diflucan white count still trending up will benefit from a CT which has been ordered yesterday continue with Rocephin discussed with the nursing sta ff Dictation was produced using [employer] dictation software. please excuse any grammatical, word or spelling errors. Time with Patient: Less than 30
--- NOTE | 2024-11-23 14:02 | CT ---
EXAMINATION TYPE: CT abdomen pelvis w con DATE OF EXAM: 11/23/2024 COMPARISON: 11/15/2024 CLINICAL INDICATION: Female, 48 years old with history of Left-sided pyelonephritis, persistent leuko cytosis; PHH, Left-sided pyelonephritis, persistent leukocytosis TECHNIQUE: Performed with Oral Contrast and with IV Contrast, patient injected with 100 ml mL of Isovue 300. CT DLP: 498.[address] CTDI: mGy Automated exposure control for dose reduction was used. Findings: There has been interval development of small bibasilar infiltrates and partially consolidative infilt rate in the lingula region. Possibility of pneumonia.. Single small gallstone. There is no gallbladder wall distention, wall thickening, pericholecystic flu id or biliary ductal dilatation. There is no focal mass or organomegaly involving the liver, pancreas, spleen or adrenal glands. There has been interval insertion of a left ureteral stent. The distal pigtail of the stent projects into the urinary bladder just beyond the left UVJ. At the very distal aspect of the stent within the ureter there is a 2 mm calcification adjacent to the stent likely representing a ureteral calculus. There are multiple kasia-like calcifications in the left kidney and 2 more dominant calcifications ea ch measuring approximately 6 mm. There is a 14.5 mm nonobstructing right renal calculus with addition al kasia-like calcifications scattered throughout the right renal collecting system. There is no hydr onephrosis bilaterally. There are 3 ill-defined hypodensities within the left kidney the largest in the lower pole measuring approximately 2.2 cm. These cannot be characterized as simple cysts. Represent solid lesions. Neoplas m not excluded and MRI of the kidneys is recommended for further evaluation. The caliber the abdominal aorta is normal is no retroperitoneal adenopathy or hemorrhage. The bowel loops are normal in caliber and there is no evidence of dilatation or obstruction. No infla mmatory changes are identified in the bowel wall or mesentery. There is no free intraperitoneal air or fluid. Interval development of a 4.1 cm sharply marginated hyperdense cyst in the region left adnexa. Given its rapid development this most likely represents a hemorrhagic left ovarian cyst. There is no free f luid in the cul-de-sac and there is no pelvic adenopathy The osseous structures and soft tissues are intact. IMPRESSION: 1. Nephrolithiasis bilaterally as described above. 2. Left ureteral stent with possible tiny stone adjacent to the distal aspect of the stent just proxi mal to the left UVJ. 3. No hydronephrosis. 4. Multiple hypodensities within the left kidney not compatible with simple cysts and further evaluat ion with MRI of the kidneys is recommended to exclude neoplasm. 5. Interval development of a 4 cm hyperdense cyst in the region left adnexa possibly hemorrhagic cyst . Short-term follow-up to resolution is recommended. 6. Interval development of lung infiltrates possibly pneumonic in nature. 7. Single gallstone without acute cholecystitis.. [facility], , 11/23/2024 1:59 PM
[2024-11-23] MEDS: ACETAMINOPHEN TAB 500 MG TAB PO PRN (16:47)
[2024-11-24 08:27] VITALS: RESP 16
[2024-11-24 09:29] LABS: ALT 44 U/L (8-44); AST 26 U/L (13-35); Albumin 3.9 g/dL (3.8-4.9); Alkaline Phosphatase 141 U/L (41-126); Calcium 9.3 mg/dL (8.7-10.3); Carbon Dioxide 26.3 mmol/L (21.6-31.8); Chloride 101 mmol/L (96-109); Glucose 98 mg/dL (70-110); Potassium 5.2 mmol/L (3.5-5.5); Sodium 138 mmol/L (135-145); Total Bilirubin 0.3 mg/dL (0.3-1.2); Total Protein 6.9 g/dL (6.2-8.2)
[2024-11-24 11:09] LABS: Basophils # (A) 0.09 X 10*3/uL (0.00-0.10); Basophils % (A) 0.5 %; Eosinophils # (A) 0.53 X 10*3/uL (0.04-0.35); HCT 36.2 % (37.2-46.3); HGB 11.1 g/dL (12.0-15.0); Lymphocytes # (A) 2.56 X 10*3/uL (0.90-5.00); Lymphocytes % (A) 14.5 %; MCH 27.2 pg (27.0-32.0); MCHC 30.7 g/dL (32.0-37.0); MCV 88.7 FL (80.0-97.0); Mean Platelet Volume 10.1 FL (9.5-12.2); Monocytes # (A) 0.69 X 10*3/uL (0.20-1.00); Monocytes % (A) 3.9 %; NRBC Per 100 WBC 0 X 10*3/uL (0.00-0.01); Neutrophils # (A) 13.45 X 10*3/uL (1.80-7.70); Platelet Count 828 X 10*3/uL (140-440); RBC 4.08 X 10*6/uL (4.10-5.20); RDW 15.3 % (11.5-14.5)
[2024-11-24 15:23] VITALS: BP 123/81; PULSE 94; TEMP 98.5
--- NOTE | 2024-11-24 17:44 | P.DS ---
Providers Date of admission: 11/15/24 23:54 Expected date of discharge: 11/24/24 Attending physician: Raymond Finley Consults: 11/15/24 23:14 Consult Physician Urgent Consulting Provider: Andrea Kasper Consult Reason/Comments: Left nephrolithiasis Do you want consulting provider notified?: Yes 11/17/24 20:52 Consult Physician Routine Consulting Provider: Von Calix Consult Reason/Comments: infection Do you want consulting provider notified?: Yes, Notify in am 11/19/24 10:16 Consult Physician Routine Consulting Provider: Chaka Ospina Consult Reason/Comments: headache Do you want consulting provider notified?: Yes Primary care physician: Poonam Jenkins [place] [facility] Course: Diagnosis on discharge: Left urolithiasis Left hydronephrosis Febrile illness with evidence of urinary tract infection History of asthma no exacerbation at this time History of migraines Headache Essential hypertension Norvasc, and losartan added during this admission Hospital course: Dorothea Douglas is a 48-year-old female who presented to [facility] emergency room with a chief complaint of abdominal pain, fever and muscle aches over the past few weeks. She was evaluated in the emergency room vital examination on presentation revealed temp 101.6, heart rate 110, respiratory rate 18, blood pressure 142/72 with a pulse ox of 97% on room air Laboratory data reveals. White blood cell 5.6, hemoglobin 10.5 creatinine 0.52 bun 14. UA positive for urinary tract infection influenza RSV and COVID-19 negative Testing in the emergency room revealed CT of abdomen and pelvis completed showing mild left hydronephrosis secondary to obstructing 6 mm calculus at the ureteropelvic junction. Lobular contour to the uterus consistent compatible fibroid change small fat-containing umbilical hernia Patient was admitted to medical floor for further evaluation and treatment. Urology services consulted patient started on IV antibiotics urine and blood cultures ordered Past medical history is significant for previous kidney stones and has followed up with urology in the past never required any cystoscopy or intervention. Additional history includes asthma. On review of systems patient is alert and oriented x 3. Patient is complaining of some muscle aches and headache. Some left flank pain noted upon exam. Patie nt denies chest pain or shortness of breath. Patient denies nausea vomiting or diarrhea. Patient denies any urinary burning or frequency On 11/17/2024 patient was seen and examined on the medical floor she is mostly complaining of right-sided headache and neck pain otherwise she denies any complaints there is no fever or chills no dizziness no chest pain no shortness of breath no cough no nausea or vomiting no abdominal pain no diarrhea and no urinary symptoms urine culture is positive for gram-negative bacilli patient remains on IV ceftriaxone awaiting culture sensitivity , will follow in a.m. On 11/18/2024 patient is alert and oriented x 3. Patient having temp of 103.1 last night infectious disease services have been consulted. Urine culture growing Klebsiella pneumonia remains on IV Rocephin. Patient denies chest pain or shortness of breath. Patient is only complaint is headache. Patient denies nausea vomiting or diarrhea. Patient denies any urinary burning frequency On 11/19/2024 patient is alert and oriented x 3. Neurology services were consulted and medications adjusted. Patient reports she had felt better yesterday. Still having some headache today. White blood cell is trending down. Patient has not temp this a.m. 100.3. Awaiting further recommendations from infectious disease and neurology services. Patient denies chest pain or shortness of breath. Patient denies nausea vomiting or diarrhea. Patient denies any urinary burning or frequency On 11/21/2024 patient is alert and oriented x 3. Patient was afebrile throughout the night and white blood cell is trending down remains on high-dose Rocephin. Patient still complaining of headache possibly due to positioning in bed. Awaiting infectious disease clearance and recommendation for discharge. Patient denies chest pain or shortness of breath. Patient denies nausea vomiting or diarrhea. Patient denies any urinary burning or frequency. Blood pressure remains high Norvasc has been added. On 11/22/2024 patient was seen and examined on the medical floor, she is alert and oriented x 3 in no apparent distress she is still complaining of neck pain and right-sided headache, otherwise she denies any complaints at this time, blood pressure remains elevated, there is no fever or chills no dizziness no chest pain no shortness of breath no cough no nausea or vomiting no abdominal pain no diarrhea and no urinary symptoms. At this time will add losartan 50 mg p.o. daily for better blood pressure control, awaiting further recommendation and clearance from neurology and infectious disease. On 11/23/2024 patient is alert and oriented x 3. Patient was having increased white blood cell count yesterday. CT scan had been ordered per infectious disease per nursing staff CT scan on hold due to patient's concerns about possible reaction to dye awaiting further recommendations from infectious disease patient remains on high-dose IV Rocephin. Patient reports improvement with headache. Patient has been afebrile. Patient denies chest pain or shortness of breath. Patient denies nausea vomiting or diarrhea. Patient denies any urinary burning or frequency On 11/24/2024 patient was seen and examined on the medical floor she is alert and oriented x 3 in no apparent distress there is no fever or chills no headache or dizziness no chest pain no shortness of breath no cough no nausea or vomiting no abdominal pain no diarrhea no urinary symptoms. Patient was evaluated by infectious disease and was cleared for discharge, she will receive oral Cipro for 12 more days, she was given prescriptions for losartan, amlodipine, gabapentin, ibuprofen, and Cipro at the time of discharge. She will follow-up with her primary care physician Dr. Jenkins within 1 week, patient will also follow-up with urology Plan - Discharge Summary New Discharge Prescriptions: New amLODIPine [Norvasc] 5 mg PO DAILY 30 Days #30 tab Ciprofloxacin HCl [Cipro] 500 mg PO BID 12 Days #24 tab Losartan [Cozaar] 50 mg PO DAILY 30 Days #30 tab Fluconazole [Diflucan] 150 mg PO DAILY@1730 5 Days #5 tab Baclofen [Lioresal] 10 mg PO DAILY PRN 10 Days #10 tab PRN Reason: Muscle Spasm Nystatin 100,000 Unit/ml Susp [Mycostatin Oral Susp] 500,000 unit PO QID 10 Days #200 ml Gabapentin [Neurontin] 300 mg PO TID PRN 30 Days #90 cap PRN Reason: cephalgia Continue Albuterol Nebulized [Ventolin Nebulized] 2.5 mg INHALATION Q4H PRN PRN Reason: Shortness Of Breath Or Wheezing Discharge Medication List Albuterol Nebulized [Ventolin Nebulized] 2.5 mg INHALATION Q4H PRN 11/20/24 [History] Baclofen [Lioresal] 10 mg PO DAILY PRN 10 Days #10 tab 11/24/24 [Rx] Ciprofloxacin HCl [Cipro] 500 mg PO BID 12 Days #24 tab 11/24/24 [Rx] Fluconazole [Diflucan] 150 mg PO DAILY@1730 5 Days #5 tab 11/24/24 [Rx] Gabapentin [Neurontin] 300 mg PO TID PRN 30 Days #90 cap 11/24/24 [Rx] Losartan [Cozaar] 50 mg PO DAILY 30 Days #30 tab 11/24/24 [Rx] Nystatin 100,000 Unit/ml Susp [Mycostatin Oral Susp] 500,000 unit PO QID 10 Days #200 ml 11/24/24 [Rx] amLODIPine [Norvasc] 5 mg PO DAILY 30 Days #30 tab 11/24/24 [Rx] Follow up Appointment(s)/Referral(s): Poonam Jenkins MD [Primary Care Provider] - 1-2 days Andrea Kasper MD [STAFF PHYSICIAN] - 1 Week (Patient is scheduled for surgery 12/04/24 . No follow up appointment needed in a week ) Von Calix MD [STAFF PHYSICIAN] - 12/01/24 2:30 pm Patient Instructions/Handouts: Kidney Stones (GEN), Urinary Tract Infection in Women (GEN), Hydronephrosis (GEN) Discharge Disposition: HOME SELF-CARE
--- NOTE | 2024-11-25 14:44 | P.PN ---
Subjective Progress Note Date: 11/24/24 Principal diagnosis: Reason for follow-up is complicated UTI Patient is a 48-year-old female with a past medical history significant for asthma kidney stone presenting to the hospital for flank pain and generalized bodyaches has been diagnosed with a complicated UTI in this patient with a left-sided hydronephrosis requiring left ureteral stent placement urine culture positive for Klebsiella with persistent fever prompted this consultation. On today's evaluation that is 11/24/2024, patient has been afebrile, patient is breathing comfortably and is currently on room air, patient denies having any significant cough no chest pain, patient denies nausea vomiting or diarrhea and no abdominal pain mention improvement in her headache feeling better. Patient white count 17.70 creatinine 0.6 Objective - Vital Signs Vital signs: Vital Signs Temp 98.9 F 11/24/24 06:55 Pulse 106 H 11/24/24 06:55 Resp 16 11/24/24 06:55 BP 146/85 11/24/24 06:55 Pulse Ox 96 11/24/24 06:55 FiO2 Intake & Output 11/23/24 11/24/24 11/24/24 18:59 06:59 18:59 Intake Total 360 Balance 360 Intake: Oral 360 Other: Voiding Method Toilet # Voids 1 2 - Exam GENERAL DESCRIPTION: Middle-age female up in the chair in no distress RESPIRATORY SYSTEM: Unlabored breathing , decreased breath sounds at bases HEART: S1 S2 regular rate and rhythm , ABDOMEN: Soft , no tenderness EXTREMITIES: No edema feet - Labs CBC & Chem 7: 11/24/24 05:09 11/24/24 05:09 Labs: Abnormal Lab Results - Last 24 Hours (Table) 11/24/24 11/24/24 Range/Units 05:09 05:09 WBC 17.70 H (4.50-10.00) X 10*3/uL RBC 4.08 L (4.10-5.20) X 10*6/uL Hgb 11.1 L (12.0-15.0) g/dL Hct 36.2 L (37.2-46.3) % MCHC 30.7 L (32.0-37.0) g/dL RDW 15.3 H (11.5-14.5) % Plt Count 828 H (140-440) X 10*3/uL Immature Gran # 0.38 H (0.00-0.04) X 10*3/uL Neutrophils # 13.45 H (1.80-7.70) X 10*3/uL Eosinophils # 0.53 H (0.04-0.35) X 10*3/uL BUN/Creatinine Ratio 30.00 H (12.00-20.00) Ratio Alkaline Phosphatase 141 H (41-126) U/L Albumin/Globulin Ratio 1.30 L (1.60-3.17) Ratio Assessment and Plan (1) Sepsis Status: Acute Code(s): A41.9 - SEPSIS, UNSPECIFIED ORGANISM SNOMED Code(s): 59442449 (2) Urinary tract infection Status: Acute Code(s): N39.0 - URINARY TRACT INFECTION, SITE NOT SPECIFIED SNOMED Code(s): 84032979 Plan: 1patient with sepsis in this patient who did have fever tachycardia elevated white count source is complicated UTI in this patient with a left-sided hydronephrosis status post left ureteral stent placement with urine culture growing Klebsiella to be the likely pathogen 2-patient have improvement in her fever pattern white count elevated questiona ble related to the left orbital hemorrhagic cyst seen on the CT in view of overall clinical improvement patient feeling better will do a 10-day course of oral Cipro and close outpatient follow-up discussed with the admitting physician prescription was sent to the pharmacy Dictation was produced using [employer] dictation software. please excuse any grammatical, word or spelling errors. Time with Patient: Less than 30
== END 2024-11-24 16:11 | disposition home or self-care (01) | DRG 720 ==
LOC: EC 19:19 → 6NMEDSUR 23:53 → OBSVTOIN 23:54 → 6NMEDSUR 11-16 07:46
PROVIDERS: ADMIT Internal Medicine; ATTEND Internal Medicine
PROC: 0T9780Z Drainage of Left Ureter with Drainage Device, Via Natural or Artificial Opening Endoscopic (ICD-10-PCS; principal; 2024-11-16 10:49)
DX: A41.50 Gram-negative sepsis, unspecified (principal); N13.6 Pyonephrosis; B96.1 Klebsiella pneumoniae [K. pneumoniae] as the cause of diseases classified elsewhere; D25.9 Leiomyoma of uterus, unspecified; G43.909 Migraine, unspecified, not intractable, without status migrainosus; N10 Acute pyelonephritis; I10 Essential (primary) hypertension; J32.0 Chronic maxillary sinusitis; J45.909 Unspecified asthma, uncomplicated; K42.9 Umbilical hernia without obstruction or gangrene; Z79.899 Other long term (current) drug therapy; Z87.442 Personal history of urinary calculi; Z20.822 Contact with and (suspected) exposure to COVID-19; Z71.3 Dietary counseling and surveillance; Z28.21 Immunization not carried out because of patient refusal; Z88.1 Allergy status to other antibiotic agents; Z28.310 Unvaccinated for COVID-19
CPT/HCPCS: 36415; 70450; 72125; 74176; 74177; 80053; 81001; 81025; 83605; 85025; 87040; 87075; 87077; 87086; 87186; 87636; 94640; 96361; 96365; 96375; 96376; 99285

== ENCOUNTER 2024-12-02 12:44 | Emergency (ER) | payer OTHER ==
--- NOTE | 2024-12-02 13:26 | ED ---
General Adult HPI - General Chief complaint: Recheck/Abnormal Lab/Rx Stated complaint: abn labs Time Seen by Provider: 12/02/24 12:55 Source: patient, RN notes reviewed, old records reviewed Mode of arrival: ambulatory Limitations: no limitations - History of Present Illness Initial comments: This is a 48-year-old female who presents to the emergency department because her platelets are over thousand and they keep elevating. Patient was in the hospital for 10 days and was discharged a week ago for a kidney infection with a kidney stone and she states she was septic at that time. Patient has been on Cipro ever since. Patient states she has had some left-sided flank pain that goes into her back but has been consistent since she left the hospital. Patient states she is really had no new symptoms. Patient denies any fever or chills. Patient denies any abdominal pain patient denies any nausea vomiting. Patient has any diarrhea. Patient denies any new symptoms at all. - Related Data Home Medications Medication Instructions Recorded Confirmed Albuterol Nebulized [Ventolin 2.5 mg INHALATION Q4H PRN 11/20/24 11/20/24 Nebulized] Previous Rx's Medication Instructions Recorded Baclofen [Lioresal] 10 mg PO DAILY PRN 10 Days #10 tab 11/24/24 Ciprofloxacin HCl [Cipro] 500 mg PO BID 12 Days #24 tab 11/24/24 Fluconazole [Diflucan] 150 mg PO DAILY@1730 5 Days #5 tab 11/24/24 Gabapentin [Neurontin] 300 mg PO TID PRN 30 Days #90 cap 11/24/24 Losartan [Cozaar] 50 mg PO DAILY 30 Days #30 tab 11/24/24 Nystatin 100,000 Unit/ml Susp 500,000 unit PO QID 10 Days #200 ml 11/24/24 [Mycostatin Oral Susp] amLODIPine [Norvasc] 5 mg PO DAILY 30 Days #30 tab 11/24/24 Allergies Allergy/AdvReac Type Severity Reaction Status Date / Time erythromycin lactobionate Allergy Itching Verified 11/16/24 09:22 [From Erythrocin] ibuprofen [From Motrin] Allergy Dyspnea Verified 12/02/24 12:50 azithromycin AdvReac Swelling Verified 11/16/24 09:22 [From Zithromax Z-Dimitry] Review of Systems ROS Statement: Those systems with pertinent positive or pertinent negative responses have been documented in the HPI. ROS Other: All systems not noted in ROS Statement are negative. 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 Patient is nontoxic and well- hydrated and is in no acute distress. ENT: Neck is soft and supple. No significant lymphadenopathy is noted. Oropharynx is clear. Moist mucous membranes. Neck has full range of motion without eliciting any pain. EYES: The sclera were anicteric and conjunctiva were pink and moist. Extraocular movements were intact and pupils were equal round and reactive to light. Eyelids were unremarkable. PULMONARY: Unlabored respirations. Good breath sounds bilaterally. No audible rales rhonchi or wheezing was noted. CARDIOVASCULAR: There is a regular rate and rhythm without any murmurs gallops or rubs. ABDOMEN: Soft and nontender with normal bowel sounds. SKIN: Skin is clear with no lesions or rashes and otherwise unremarkable. NEUROLOGIC: Patient is alert and oriented x3. Cranial nerves II through XII are grossly intact. Motor and sensory are also intact. Normal speech, volume and content. Symmetrical smile. MUSCULOSKELETAL: Normal extremities with adequate strength and full range of motion. No lower extremity swelling or edema. No calf tenderness. LYMPHATICS: No significant lymphadenopathy is noted PSYCHIATRIC: Normal psychiatric evaluation. Limitations: no limitations Course Vital Signs 12/02/24 12:46 Temperature 97.8 F Pulse Rate 89 Respiratory 16 Rate Blood Pressure 157/92 O2 Sat by Pulse 98 Oximetry Medical Decision Making - Medical Decision Making Was pt. sent in by a medical professional or institution (, PA, CIRCULAR STUFFER, urgent care, hospital, or assisted...) When possible be specific @ -No Did you speak to anyone other than the patient for history (EMS, parent, family, police, friend...)? What history was obtained from this source @ -No Did you review nursing and triage notes (agree or disagree)? Why? @ -I reviewed and agree with nursing and triage notes Were old charts reviewed (outside hosp., previous admission, EMS record, old EKG, old radiological studies, urgent care reports/EKG's, assisted records)? Report findings @ -No old charts were reviewed Differential Diagnosis? @ -Abnormal lab draw, thrombocytosis, not all-inclusive EKG interpreted by me (3pts min.). @ -As above X-rays interpreted by me (1pt min.). @ -None done CT interpreted by me (1pt min.). @ -None done U/S interpreted by me (1pt. min.). @ -None done What testing was considered but not performed or refused? (CT, X-rays, U/S, labs)? Why? @ -None What meds were considered but not given or refused? Why? @ -None Did you discuss the management of the patient with other professionals (professionals i.e. , PA, CIRCULAR STUFFER, lab, RT, psych nurse, social service director, block breaker, teacher, accounting officer, pillowcase sewer)? Give summary @ -No Was smoking cessation discussed for >3mins.? @ -No Was critical care preformed (if so, how long)? @ -No Were there social determinants of health that impacted care today? How? (Homelessness, low income, unemployed, alcoholism, drug addiction, transportation, low edu. Level, literacy, decrease access to med. care, longterm, rehab)? @ -No Was there de-escalation of care discussed even if they declined (Discuss DNR or withdrawal of care, Hospice)? DNR status @ -No What co-morbidities impacted this encounter? (DM, HTN, Smoking, COPD, CAD, Cancer, CVA, ARF, Chemo, Hep., AIDS, mental health diagnosis, sleep apnea, morbid obesity)? @ -None Was patient admitted / discharged? Hospital course, mention meds given and route, prescriptions, significant lab abnormalities, going to OR and other pertinent info. @ -Patient's lab work showed that the platelet level was 973 which is down from yesterday. I spoke with hematology and they wanted some iron studies done and so those studies were drawn as well as an JONG and they will follow-up with those results with the patient Undiagnosed new problem with uncertain prognosis? @ -No Drug Therapy requiring intensive monitoring for toxicity (Heparin, Nitro, Insulin, Cardizem)? @ -No Were any procedures done? @ -No Diagnosis/symptom? @ -Thrombocytosis Acute, or Chronic, or Acute on Chronic? @ -Default Uncomplicated (without systemic symptoms) or Complicated (systemic symptoms)? @ -Acute uncomplicated Side effects of treatment? @ -No Exacerbation, Progression, or Severe Exacerbation? @ -No Poses a threat to life or bodily function? How? (Chest pain, USA, VT, pneumonia, PE, COPD, DKA, ARF, appy, cholecystitis, CVA, Diverticulitis, Homicidal, Suicidal, threat to staff... and all critical care pts) @ -No - Lab Data Result diagrams: 12/02/24 14:38 12/02/24 14:38 Lab Results 12/02/24 12/02/24 12/02/24 Range/Units 13:46 14:38 14:38 WBC 9.40 (4.50-10.00) 10*3/uL RBC 3.97 L (4.10-5.20) 10*6/uL Hgb 11.1 L (12.0-15.0) g/dL Hct 34.2 L (37.2-46.3) % MCV 86.1 (80.0-97.0) fL MCH 28.0 (27.0-32.0) pg MCHC 32.5 (32.0-37.0) g/dL Plt Count 970 H (140-440) 10*3/uL MPV 9.1 L (9.5-12.2) fL Immature Gran % (Auto) 0.4 % Neutrophils % 64.3 % Lymphocytes % 28.0 % Monocytes % 4.3 % Eosinophils % 2.1 % Basophils % 0.9 % Immature Gran # 0.04 (0.00-0.04) 10*3/uL Neutrophils # 6.05 (1.80-7.70) 10*3/uL Lymphocytes # 2.63 (0.90-5.00) 10*3/uL Monocytes # 0.40 (0.20-1.00) 10*3/uL Eosinophils # 0.20 (0.04-0.35) 10*3/uL Basophils # 0.08 (0.00-0.10) 10*3/uL Immature Plt Fraction 1.0 L (1.1-6.1) % Sodium 135 L (137-145) mmol/L Potassium 4.9 (3.5-5.1) mmol/L Chloride 102 (98-107) mmol/L Carbon Dioxide 28 (22-30) mmol/L Anion Gap 5 mmol/L BUN 25 H (7-17) mg/dL Creatinine 0.56 (0.52-1.04) mg/dL Est GFR (CKD-EPI)AfAm >90 (>60 ml/min/1.73 sqM) Est GFR (CKD-EPI)NonAf >90 (>60 ml/min/1.73 sqM) Glucose 99 (74-99) mg/dL Calcium 9.4 (8.4-10.2) mg/dL Total Bilirubin 0.5 (0.2-1.3) mg/dL AST 20 (14-36) U/L ALT 23 (4-34) U/L Alkaline Phosphatase 114 (38-126) U/L Total Protein 7.0 (6.3-8.2) g/dL Albumin 3.8 (3.5-5.0) g/dL Urine Color Yellow Urine Appearance Clear (Clear) Urine pH 6.0 (5.0-8.0) Ur Specific [place] 1.020 (1.001-1.035) Urine Protein 1+ H (Negative) Urine Glucose (UA) Negative (Negative) Urine Ketones Negative (Negative) Urine Blood Large H (Negative) Urine Nitrite Negative (Negative) Urine Bilirubin Negative (Negative) Urine Urobilinogen <2.0 (<2.0) mg/dL Ur Leukocyte Esterase Moderate H (Negative) Urine RBC >182 H (0-5) /hpf Urine WBC 17 H (0-5) /hpf Urine WBC Clumps Rare H (None) /hpf Ur Squamous Epith Cells 1 (0-4) /hpf Urine Mucus Few H (None) /hpf Disposition Clinical Impression: Thrombocytosis Disposition: HOME SELF-CARE Condition: Good Is patient prescribed a controlled substance at d/c from ED?: No Referrals: Poonam Jenkins MD [Primary Care Provider] - 1-2 days Time of Disposition: 15:42
[2024-12-02 14:07] LABS: Appearance,Urine Clear (Clear); Bilirubin,Urine Negative (Negative); Blood,Urine Large (Negative); Color,Urine Yellow; Glucose,Urine (UA) Negative (Negative); Ketones,Urine Negative (Negative); Leukocyte Esterase,Urine Moderate (Negative); Mucus,Urine Few /hpf; Nitrite,Urine Negative (Negative); Protein,Urine 1+ (Negative); RBC,Urine >182 /hpf (0-5); Squamous Epithelial Cell,Urine 1 /hpf (0-4); Urobilinogen,Urine <2.0 mg/dL (<2.0); WBC,Urine 17 /hpf (0-5)
[2024-12-02 14:50] LABS: Basophils # (A) 0.08 10*3/uL (0.00-0.10); Basophils % (A) 0.9 %; Eosinophils % (A) 2.1 %; HCT 34.2 % (37.2-46.3); HGB 11.1 g/dL (12.0-15.0); Lymphocytes # (A) 2.63 10*3/uL (0.90-5.00); MCHC 32.5 g/dL (32.0-37.0); MCV 86.1 fL (80.0-97.0); Mean Platelet Volume 9.1 fL (9.5-12.2); Monocytes % (A) 4.3 %; Neutrophils # (A) 6.05 10*3/uL (1.80-7.70); Neutrophils % (A) 64.3 %; Platelet Count 970 10*3/uL (140-440); RBC 3.97 10*6/uL (4.10-5.20); RDW 14.4 % (11.5-14.5)
[2024-12-02 15:02] LABS: ALT 23 U/L (4-34); AST 20 U/L (14-36); African American GFR (CKD) >90 (>60 ml/min/1.73 sqM); Albumin 3.8 g/dL (3.5-5.0); Alkaline Phosphatase 114 U/L (38-126); Anion Gap 5 mmol/L; Blood Urea Nitrogen 25 mg/dL (7-17); Calcium 9.4 mg/dL (8.4-10.2); Carbon Dioxide 28 mmol/L (22-30); Chloride 102 mmol/L (98-107); Glucose 99 mg/dL (74-99); Non-African American GFR(CKD) >90 (>60 ml/min/1.73 sqM); Potassium 4.9 mmol/L (3.5-5.1); Sodium 135 mmol/L (137-145); Total Bilirubin 0.5 mg/dL (0.2-1.3)
[2024-12-02 17:25] VITALS: BP 148/90; PULSE 79; RESP 20; TEMP 98.3
[2024-12-02 18:30] LABS: % Iron Saturation 14.61 (12.00-45.00); Iron 65 UG/DL (50-170); Rheumatoid Factor, Qnt <15 IU/mL (0-15); Total Iron Binding Capacity 445 UG/DL (228-460)
== END 2024-12-02 17:25 | disposition home or self-care (01) ==
LOC: EC 12:44
DX: D75.839 Thrombocytosis, unspecified (principal); Z88.6 Allergy status to analgesic agent; Z88.1 Allergy status to other antibiotic agents
CPT/HCPCS: 36415; 80053; 81001; 82728; 83540; 83550; 85025; 86038; 86431; 99283

== ENCOUNTER 2024-12-04 08:10 | Observation (INO) | payer OTHER ==
[2024-12-03 09:42] VITALS: BMI 23.1
--- NOTE | 2024-12-03 21:04 | P.GSHP ---
History of Present Illness H&P Date: 12/03/24 Chief Complaint: Left flank pain The patient is a 48-year-old female who presented with a one week history of non-radiating left flank pain, which she describes as dull and intermittent left flank pain. She has also experienced fatigue and confusion. Beginning on November 13, she developed associated bodyaches, headache, and fever. Her primary complaint at this time is neck pain. She has a known history of bilateral kidney stones. CT scan showed mild left hydronephrosis due to a 6 mm left UPJ calculus, and she underwent left ureteral stent insertion. She has been treated for a Klebsiella UTI, and her leukocytosis has resolved. She now comes for removal of the UPJ calculus, as well as bilateral renal calculi seen on the CT scan. - Genitourinary (Female) Genitourinary: Reports flank pain, Reports kidney stones Past Medical History Past Medical History: Asthma, Osteoarthritis (OA) Additional Past Medical History / Comment(s): Mastocytosis(Mast cell Disease), Raynauds, hx of and current kidney stones. History of Any Multi-Drug Resistant Organisms: None Reported Past Surgical History: Tonsillectomy Additional Past Surgical History / Comment(s): Left uretral stent insertion. Past Anesthesia/Blood Transfusion Reactions: Motion Sickness, Postoperative Nausea & Vomiting (PONV) Smoking Status: Never smoker - Past Family History Father Family Medical History: Cancer Additional Family Medical History / Comment(s): Basal cell skin cancer. Medications and Allergies Home Medications Medication Instructions Recorded Confirmed Type Albuterol Nebulized [Ventolin 2.5 mg INHALATION Q4H PRN 11/20/24 12/03/24 History Nebulized] Ciprofloxacin HCl [Cipro] 500 mg PO BID 12 Days #24 tab 11/24/24 12/03/24 Rx Gabapentin [Neurontin] 300 mg PO TID PRN 30 Days #90 cap 11/24/24 12/03/24 Rx Albuterol Inhaler Unknown Dose 1 - 2 puff INHALATION DIRECTED 12/03/24 12/03/24 History PRN Baclofen [Lioresal] 10 mg PO HS PRN 12/03/24 12/03/24 History Naproxen Sodium [Aleve] 440 mg PO BID 12/03/24 12/03/24 History Allergies Allergy/AdvReac Type Severity Reaction Status Date / Time erythromycin lactobionate Allergy Itching Verified 12/03/24 09:11 [From Erythrocin] ibuprofen [From Motrin] Allergy Dyspnea Verified 12/03/24 09:11 azithromycin AdvReac Swelling Verified 12/03/24 09:11 [From Zithromax Z-Dimitry] Surgical - Exam - General well developed, well nourished, no distress - Respiratory normal respiratory effort - Abdomen Abdomen: soft, non tender, no guarding, no rigid, no rebound - Genitourinary normal external genitalia - Psychiatric oriented to time, oriented to person, oriented to place, speech is normal, memory intact Results - Imaging CT scan - abdomen: report reviewed, image reviewed Assessment and Plan (1) Left nephrolithiasis Status: Acute Code(s): N20.0 - CALCULUS OF KIDNEY SNOMED Code(s): 37652015 Plan: Cystoscopy, left ureteral stent removal, bilateral ureteroscopy with Holmium laser lithotripsy and stone basketing, right ureteral stent insertion. The procedure has been reviewed in detail with the patient. She has been made aware of potential risks, which include anesthesia, bleeding, infection, inability to remove all calculi, and ureteral injury.
--- NOTE | 2024-12-04 08:38 | XR ---
EXAMINATION TYPE: XR KUB DATE OF EXAM: 12/04/2024 8:32 AM CLINICAL INDICATION: Female, 48 years old with history of N20.1 left ureteral calculi / N20.0 bilater al renal, pain TECHNIQUE: 2 supine views of the abdomen. COMPARISON: CT abdomen and pelvis November 23, 2024. FINDINGS: Persistent double-J left ureter stent. Persistent large 15 mm right renal calculus. There a re 3-4 smaller calculi bilaterally redemonstrated. There are a few small bilateral calcified pelvic p hleboliths. Overall nonobstructive bowel gas pattern. Osseous structures are intact. IMPRESSION: As above. [facility], , 12/04/2024 8:35 AM
[2024-12-04] MEDS ORDERED: HYDROmorphone 0.5 MG/0.5 ML SYRINGE IVP PRN (08:40)
[2024-12-04] MEDS: IV FLUID CONTINUATION 1,000 ML IV ONE ×2 (08:56)
[2024-12-04] MEDS: DEXAMETHASONE SOD PHOSPHATE 4 MG/ML 1 ML VIAL IV ONE (09:05)
[2024-12-04] MEDS: LACTATED RINGERS 1,000 ML IV SCH (09:05)
[2024-12-04] MEDS: ONDANSETRON 4 MG/2 ML VIAL IVP ONE (09:05)
[2024-12-04] MEDS: SCOPOLAMINE 1 MG/72 HR PATCH TRANSDERM STA (09:07)
[2024-12-04] MEDS ORDERED: fentaNYL (PF) 50 MCG/ML 2 ML AMP ONE (10:16)
[2024-12-04] MEDS ORDERED: NEOSTIGMINE 1 MG/ML 10 ML VIAL ONE (10:16)
[2024-12-04] MEDS ORDERED: ROCURONIUM 10 MG/ML (5 ML VIAL) IV ONE (10:16)
[2024-12-04] MEDS ORDERED: GLYCOPYRROLATE 0.2 MG/ML 2 ML VIAL ONE (10:16)
[2024-12-04] MEDS ORDERED: PROPOFOL 10 MG/ML 20 ML VIAL IV ONE (10:16)
[2024-12-04] MEDS ORDERED: LIDOCAINE 1% INJ 10MG/ML (20 ML MDV) ONE (10:16)
[2024-12-04] MEDS ORDERED: SUCCINYLCHOLINE CHLORIDE 200 MG/10 ML VIAL IV ONE (10:16)
[2024-12-04] MEDS: ceFAZolin 2 GM in DEXTROSE 5% IN WATER 50 ML IVPB PRN (10:21)
[2024-12-04] MEDS: IOPAMIDOL-370 50ML BTL MISCELLANE ONE ×2 (10:54)
--- NOTE | 2024-12-04 12:46 | FL ---
EXAMINATION TYPE: FL urography retrograde DATE OF EXAM: 12/04/2024 COMPARISON: The same day abdominal x-ray HISTORY: Left ureteral calculus. TECHNIQUE: Fluoroscopy. FINDINGS: Fluoroscopic guidance was provided during bilateral retrograde urogram and stent insertion procedure performed by Dr. Kasper. A total of 37 seconds of fluoroscopic time was utilized during t he procedure and 5 spot images was acquired. Total dose area product (DAP) in uGy*m?, mGy*cm? (or si milar): 0.45080. IMPRESSION: As Above. [facility], , 12/04/2024 12:44 PM
[2024-12-04] MEDS: KETOROLAC 15 MG/ML 1 ML VIAL IVP STA (13:15)
[2024-12-04] MEDS: fentaNYL (PF) 50 MCG/ML 2 ML AMP IVP PRN (13:56)
[2024-12-04] MEDS ORDERED: HYDROmorphone 2 MG/ML 1 ML SYRINGE IVP PRN (15:58)
[2024-12-04] MEDS: KETOROLAC 15 MG/ML 1 ML VIAL IM STA (16:24)
[2024-12-04] MEDS: oxyBUTYnin chloride 5 MG TAB PO STA (17:27)
[2024-12-04] MEDS: ceFAZolin 2 GM in DEXTROSE 5% IN WATER 50 ML IVPB SCH (17:29)
[2024-12-04] MEDS: DEXTROSE 5%-0.45% NACL 1,000 ML IV SCH (17:30)
[2024-12-04] MEDS: ONDANSETRON 4 MG/2 ML VIAL IVP PRN (18:52)
[2024-12-04] MEDS: MORPHINE SULFATE 4 MG/ML SYRINGE IVP PRN (18:53)
[2024-12-05 07:57] VITALS: BP 112/69; PULSE 83; RESP 16; TEMP 97.6
[2024-12-05] MEDS: oxyBUTYnin chloride 5 MG TAB PO SCH (10:10)
[2024-12-05] MEDS: KETOROLAC 15 MG/ML 1 ML VIAL IVP PRN (10:13)
--- NOTE | 2024-12-05 13:00 | P.DS ---
Providers Attending physician: Andrea Kasper Primary care physician: [facility] Course: The patient was admitted yesterday for ureteroscopy and laser lithotripsy by Dr. Kasper. She underwent this without difficulty but had a significant amount of postoperative pain. For this reason she was kept in the hospital overnight. Her pain seems to be better. She will be discharged home today to her family. Should go home on Spickard and oxybutynin. She will follow-up with Dr. Kasper next week. Her condition is good. Patient Condition at Discharge: Good Plan - Discharge Summary Discharge Rx Participant: No New Discharge Prescriptions: New HYDROcodone/APAP 5-325MG [[place] 5-325] 1 tab PO Q4HR PRN #14 tab PRN Reason: Pain Oxybutynin Chloride [oxyBUTYnin chloride ER] 10 mg PO DAILY PRN #10 tab PRN Reason: Spasms No Action Albuterol Inhaler Unknown Dose 1 - 2 puff INHALATION DIRECTED PRN PRN Reason: Shortness Of Breath Albuterol Nebulized [Ventolin Nebulized] 2.5 mg INHALATION Q4H PRN PRN Reason: Shortness Of Breath Or Wheezing Ciprofloxacin HCl [Cipro] 500 mg PO BID 12 Days #24 tab Gabapentin [Neurontin] 300 mg PO TID PRN 30 Days #90 cap PRN Reason: cephalgia Baclofen [Lioresal] 10 mg PO HS PRN PRN Reason: Muscle Spasm Naproxen Sodium [Aleve] 440 mg PO BID Acetaminophen Tab [Tylenol Tab] 500 mg PO Q6H Discharge Medication List Albuterol Nebulized [Ventolin Nebulized] 2.5 mg INHALATION Q4H PRN 11/20/24 [History] Ciprofloxacin HCl [Cipro] 500 mg PO BID 12 Days #24 tab 11/24/24 [Rx] Gabapentin [Neurontin] 300 mg PO TID PRN 30 Days #90 cap 11/24/24 [Rx] Albuterol Inhaler Unknown Dose 1 - 2 puff INHALATION DIRECTED PRN 12/03/24 [History] Baclofen [Lioresal] 10 mg PO HS PRN 12/03/24 [History] Naproxen Sodium [Aleve] 440 mg PO BID 12/03/24 [History] Acetaminophen Tab [Tylenol Tab] 500 mg PO Q6H 12/04/24 [History] HYDROcodone/APAP 5-325MG [[place] 5-325] 1 tab PO Q4HR PRN #14 tab 12/05/24 [Rx] Oxybutynin Chloride [oxyBUTYnin chloride ER] 10 mg PO DAILY PRN #10 tab 12/05/24 [Rx] Follow up Appointment(s)/Referral(s): Andrea Kasper MD [STAFF PHYSICIAN] - 12/12/24 1:40 pm Patient Instructions/Handouts: *[facility] - Cystoscopy Discharge Instructions, *[facility] - (Anesthesia) Discharge Instructions Outpatient Surgery, *[facility] - Scopalamine Patch Instructions, Cystoscopy (DC), Lithotripsy (DC) Activity/Diet/Wound Care/Special Instructions: Patient had Toradol at 13:15. Inpatient pharmacy said she can get another NSAID's 6-8 hours after receiving the Toradol. Follow-up with Dr. Kasper on December 11 or December 12 for office cystoscopy with stent removal. Discharge Disposition: HOME SELF-CARE
--- NOTE | 2024-12-05 15:21 | P.OP ---
Date of Procedure: 12/04/24 Preoperative Diagnosis: Bilateral renal calculi Postoperative Diagnosis: Same Procedure(s) Performed: Cystoscopy, bilateral ureteroscopy with Holmium laser lithotripsy and stone basketing, left ureteral stent removal, left retrograde pyelogram, right urete ral stent insertion Anesthesia: SHABNAMA Surgeon: Andrea Kasper Estimated Blood Loss (ml): 10 IV fluids (ml): 400 Pathology: other (Renal calculus fragments, sent for chemical analysis) Condition: stable Disposition: PACU Indications for Procedure: The patient is a 48-year-old female who presented with a one week history of non-radiating left flank pain, which she describes as dull and intermittent left flank pain. She has also experienced fatigue and confusion. Beginning on November 13, she developed associated bodyaches, headache, and fever. Her primary complaint at this time is neck pain. She has a known history of bilateral kidney stones. CT scan showed mild left hydronephrosis due to a 6 mm left UPJ calculus, and she underwent left ureteral stent insertion. She has been treated for a Klebsiella UTI, and her leukocytosis has resolved. She now comes for removal of the UPJ calculus, as well as bilateral renal calculi seen on the CT scan. Operative Findings: Several small left renal calculi, all removed. Several small right renal calculi, in addition to a 16 mm right upper pole calculus. Description of Procedure: The patient was taken to the operating room and placed in the dorsolithotomy position, with legs supported in Jayy stirrups. The external genitalia was prepped and draped sterilely. The 30 lens was used to introduce the 21-Indonesian Sam cystoscopic sheath through the urethra and into the bladder under direct vision. The bladder was examined in its entirety. The right ureteral orifice appeared normal. Grasping forceps were used to grasp the distal end of the left ureteral stent, which was withdrawn along with the cystoscope. A 0.038 inch Glidewire was passed through the stent and up to the left renal pelvis. The stent was removed, an 11/13-Indonesian ureteral access catheter was passed over the wire, up to the proximal ureter. The Recroup flexible ureteroscope was then passed through the ureteral access catheter sheath and advanced under direct vision, up to the left renal pelvis. 4 calculi were identified within the left intrarenal collecting system, the largest measuring approximately 4-5 mm. These were all removed using a 1.9 Indonesian 0 tip nitinol basket. Within the lower pole calyx, a small calculus was identified which was adherent to the mucosa. The 272 micron Holmium laser probe was passed through the ureteroscope, and lithotripsy was performed to fragment this calculus and from the mucosa. The ureteroscope was slowly withdrawn and under direct vision, along with the ureteral access catheter sheath. There was no evidence of ureteral trauma. The cystoscope was replaced into the bladder. The Glidewire was used to cannulate the right ureteral orifice, and the Glidewire was advanced up to the right renal pelvis. The cystoscope was removed, and an 11/13 Indonesian ureteral access catheter sheath was passed over the wire, up to the proximal ureter. The Recroup flexible ureteroscope was then passed through the ureteral access catheter sheath and advanced under direct vision, up to the right renal pelvis. A large calculus was identified within an upper pole calyx, and laser lithotripsy was performed utilizing a dusting mode. This was largely successful until the calculus began to fragment. The laser was then switched to a popcorning mode, and additional lithotripsy was performed. Several calculus fragments measuring 3 to 4 mm in size were removed using a 1.9 Indonesian 0 tip nitinol basket, and the remaining calculus fragments were all equal to are smaller than the size of the laser fiber tip. The remaining calyces were examined, and several additional small calculi were identified within a lower pole calyx. These were removed using a combination of stone basketing and laser lithotripsy. At this time, the ureteroscope was slowly withdrawn under direct vision, along with the ureteral access catheter sheath. There was no evidence of ureteral trauma. The Glidewire was passed through the ureteroscope and up to the right renal pelvis. The Glidewire was then backloaded into the cystoscope, which was passed into the bladder. A 24 cm, 4.8 Indonesian double-J ureteral stent was placed over the wire. Proper stent positioning was verified fluoroscopically and endoscopically. The bladder was emptied and the cystoscope removed. The patient tolerated the procedure well and was taken to the recovery room in stable condition. [facility] [place] Report: Procedure Acuity: Elective Stone Size and Location: 16 mm, right upper pole Ureteral Dilation: No Ureteral Access Sheath Used: Yes Stone Sent for Analysis: Yes All Stones/Fragments Were Removed with a Basket: No Complications: No Preoperative Antibiotics Given: Yes Stent Placed: Yes If Stent Placed, Was String Left Attached: No If Stent Placed, When is it to be Removed: 1 week Discharge Medications: [place], oxybutynin
== END 2024-12-05 14:46 | disposition home or self-care (01) ==
LOC: OR 08:10 → 4SSUR 08:11 → OR 16:12 → 4SSUR 12-05 14:46 → OR 12-05 14:46
PROVIDERS: ADMIT Urology; ATTEND Urology
DX: N20.0 Calculus of kidney (principal); Z87.442 Personal history of urinary calculi; Z88.1 Allergy status to other antibiotic agents; Z88.6 Allergy status to analgesic agent
CPT/HCPCS: 96376 ×2; 96365; 96366; 96374; 96375; 82365; 74420; 74018; 52353; 52356; G0378 ×2; C1769; J0330; J2270 ×2; J1100; J2710; J0690 ×2; J2405; J2003; J3010; J1885 ×2; J2704; J1596

== ENCOUNTER → 2025-01-09 | Outpatient (CLI) | payer OTHER ==
--- NOTE | 2025-01-09 09:06 | MR ---
EXAMINATION TYPE: MR abdomen wo/w con DATE OF EXAM: 01/09/2025 7:14 AM COMPARISON: CT 11/23/2024 CLINICAL INDICATION: Female, 49 years old with history of N28.1 CYST OF KIDNEY, ACQUIRED, Renal Cyst, Abnormal CT, TECHNIQUE: Multiplanar, multisequence images of the abdomen were obtained before and after administra tion of 6 mL intravenous Gadobutrol gadolinium contrast. IV Contrast: 6 cc Gadobutrol (None if empty) FINDINGS: Heart is borderline in size without pericardial effusion. No sizable pleural effusion. Liver measures mildly enlarged at 19.6 cm possibly due to the presence of a Maria Fernanda's lobe. Tiny 5 mm gallstone. No abnormal gallbladder distention. No biliary ductal dilatation. Portal venous system is patent. Adrenal glands, spleen with tiny anterior splenule, and pancreas within normal limits. Known renal stones seen on CT not well demonstrated by MRI. 1.6 cm area of centrally located increase d T2 signal seems to correspond to a renal stone on CT. At the left kidney lower pole, there is T1 isointense and T2 low intensity cortical lesion measuring 1.5 cm. This is in comparison to 2.2 cm on 11/23/2024 CT. There is vague postcontrast enhancement here . At the lateral upper to mid pole left kidney, there is a 1.2 cm cyst that remains, 1.[address] However, there is possible enhancement along the inferior margin, axial subtraction series 904 imag e 68 and axial postcontrast 901 image 324. No hydronephrosis on either side. A few tiny right-sided renal cortical cysts measuring up to 6 mm. Scattered moderate stool. No upper abdominal lymphadenopathy, ascites fluid, or gross bowel abnormali ty is seen. IMPRESSION: 1. Known renal stones are not well demonstrated by MRI. T2 hyperintense area central upper pole right kidney likely corresponds to a 1.6 cm renal calculus. Additional tiny cortical cysts in the right ki dney measuring up to 6 mm. 2. Two indeterminate lesions which require follow-up within the left kidney. Both of these measure sl ightly smaller compared to 11/23/2024 suggesting that they may have experienced superinfection at that time: 3. Lateral upper mid pole left kidney, a 1.2 cm cyst remains (1.4 cm, previously). Overall degree of complexity has decreased compared to CT but there may be some residual enhancement along the inferior margin. 6 month follow-up CT or MRI to reassess. 4. Lower pole left kidney lesion (1.5 cm versus 2.2 cm, previously) may represent a complicated cyst with low T2 signal. However, there is vague postcontrast enhancement. A residual small renal abscess or complex cyst are both considerations. Reassess at follow-up. [facility], Workstation: [id number], 01/09/2025 9:03 AM
== END | disposition home or self-care (01) ==
LOC: RADMRIMAIN 06:05
PROVIDERS: ATTEND Urology
DX: N20.0 Calculus of kidney (principal); N28.1 Cyst of kidney, acquired
CPT/HCPCS: 74183; A9585